=== PATIENT | female | born 1980 | race African-American/Black ===

== ENCOUNTER 2016-03-18 07:40 | Emergency (ER) | payer OTHER ==
[~2016-03-18] VITALS: Ht 154.9 cm; Wt 115.0 kg
[~2016-03-18 07:40] MED LIST: CYCL5TAB PO; IBUP-232 PO
[2016-03-18 07:43] VITALS: BP 147/82; PULSE 71; RESP 15; TEMP 97.6; O2SAT 99
[2016-03-18] MEDS ORDERED: BACT2OIN TOPICAL (08:17)
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
[2016-03-18] MEDS ORDERED: LISI2.5T3 PO (08:30)
[2016-03-18] MEDS ORDERED: CLON0.1T PO (08:30)
[2016-03-18] MEDS ORDERED: LISI-519 PO (08:31)
== END 2016-03-18 08:50 | disposition home or self-care (01) ==
LOC: NEPB 07:40
DX: R23.4 Changes in skin texture (principal); N64.59 Other signs and symptoms in breast; I10 Essential (primary) hypertension; E78.00 Pure hypercholesterolemia, unspecified; F17.210 Nicotine dependence, cigarettes, uncomplicated
CPT/HCPCS: 99283

== ENCOUNTER 2016-08-01 22:06 | Emergency (ER) | payer OTHER ==
[~2016-08-01] VITALS: Ht 170.2 cm; Wt 105.0 kg
[~2016-08-01 22:06] MED LIST changes: +BACT2OIN TOPICAL; +CLON0.1T PO; -CYCL5TAB PO; -IBUP-232 PO; +LISI-519 PO; +LISI2.5T3 PO
[2016-08-01 22:09] VITALS: BP 187/106; PULSE 105; RESP 20; TEMP 98.2; O2SAT 100
[2016-08-02 00:24] VITALS: O2SAT 100
[2016-08-02 00:34] LABS: AUTOMATED NEUTROPHIL # 4.2 TH/MM3 (1.8-7.7); BASOPHIL % 0.6 % (0.0-2.0); EOSINOPHIL # 0.2 TH/MM3 (0-0.4); EOSINOPHIL % 2.1 % (0.0-4.0); HEMO FLAGS DIFF FINAL; LYMPH % 41.2 % (9.0-44.0); LYMPHOCYTE # 3.5 TH/MM3 (1.0-4.8); MEAN CELL VOLUME 83.9 FL (80.0-100.0); MEAN CORPUSCULAR HEMOGLOBIN 26.6 PG (27.0-34.0); MEAN CORPUSCULAR HGB CONC 31.7 % (32.0-36.0); NEUT % 49.1 % (16.0-70.0); PLATELET COUNT 372 TH/MM3 (150-450); RED BLOOD COUNT 5.37 MIL/MM3 (4.00-5.30); RED CELL DISTRIBUTION WIDTH 14.2 % (11.6-17.2); WHITE BLOOD COUNT 8.6 TH/MM3 (4.0-11.0)
--- NOTE | 2016-08-02 00:58 | PD ---
HPI Chief Complaint: Hypertension Time Seen by Provider: 23:46 Travel History International Travel<30 days: No Contact w/Intl Traveler<30days: No Traveled to known affect area: No History of Present Illness HPI The patient is a 36 year old female who presents to the [facility] emergency department with a history of running out of her blood pressure medication 3 days ago. She was on Clonidine and lisinopril. The night she ran out of her blood pressure medication, she began to have nausea and vomiting. She is having nausea and vomiting 6 times per day. She has had diarrhea 3 x per day. She denies having any blood in her stool or black or tarry stools. She denies having any mucus in her stool. She denies having any known sick contacts, recent antibiotic use, foreign travel, or unusual food intake. She reports that she ran out of her blood pressure medication as she lost her insurance briefly and no longer had a primary care physician. The patient reports that she has pain around her umbilical hernia site. She reports that she believes this is related to recurrent vomiting. The patient denies any known recent fevers, cough, congestion, neck pain, chest pain, shortness of breath, urinary symptoms, or neurologic symptoms. FOR[facility]LY [facility] Past Medical History Narrative Medical The patient's past medical history is significant for umbilical hernia for 2 years, hypertension, high cholesterol, depression, brain bleed in childhood, seizures. Blood Disorders: No Anxiety: No Depression: Yes Heart Rhythm Problems: No Cancer: No Cardiac Catheterization: No Cardiovascular Problems: Yes (HTN) High Cholesterol: Yes Chest Pain: No Congestive Heart Failure: No Diabetes: No Diminished Hearing: No Endocrine: No Genitourinary: Yes (hernia repair) Headaches: Yes Heparin Induced Thrombocytopen: No Hypertension: Yes Immune Disorder: No Implanted Vascular Access Dvce: No Musculoskeletal: No Neurologic: Yes (seizures) Psychiatric: Yes Reproductive: No Respiratory: No Immunizations Current: No Seizures: Yes ( A CHILD) ?: Not LMP: 07/23/16 : 4 Para: 3 Miscarriage: 1 : 1 Ectopic : Yes Ovarian Cysts: Yes Tubal Ligation: Yes (UNILATERAL) Past Surgical History Narrative Surgical Patient's past surgical history is significant for hernia repair, c-sections x3 , tubal removal, btl. Abdominal Surgery: Yes (Hernia 2011) AICD: No Body Medical Devices: BLOOD CLOT RIGHT SIDE OF HEAD FIVE YEARS AGO-no sx for this Section: Yes (X3) Coronary Artery Bypass Graft: No Genitourinary Surgery: No Gynecologic Surgery: Yes (TUBAL LIGATION, X 4) Other Surgery: Yes Family History Family Myocardial Infarction: Yes (grandmother ) Social History Alcohol Use: No Tobacco Use: Yes (1/2 PPD) Substance Use: Yes (MARIJUANA OCCASIONAL) Allergies-Medications (Allergen,Severity, Reaction): Coded Allergies: Darvocet-N 100 (Verified Adverse Reaction, Mild, itch, 08/01/16) Lortab (Verified Adverse Reaction, Unknown, ITCHY, 08/01/16) Morphine (Verified Adverse Reaction, Unknown, ITCHING, 08/01/16) Tylenol #3 (Verified Adverse Reaction, Unknown, ITCHING, 08/01/16) Reported Meds & Prescriptions Reported Meds & Active Scripts Active Zofran Odt (Ondansetron Odt) 4 Mg Tab 4 Mg SL Q6HR PRN Clonidine (Clonidine HCl) 0.2 Mg Tab 0.2 Mg PO BID Lisinopril 5 Mg Tab 5 Mg PO DAILY Reported Clonidine (Clonidine HCl) 0.1 Mg Tab 0.2 PO DAILY Lisinopril 2.5 Mg Tab Unknown Dose PO DAILY Review of Systems Except as stated in HPI: all other systems reviewed are Neg General / Constitutional: No: Fever Eyes: No: Visual changes HENT: Positive: Headaches, No: Neck Stiffness, Neck Pain Cardiovascular: No: Chest Pain or Discomfort Respiratory: No: Shortness of Breath Gastrointestinal: Positive: Nausea, Vomiting, Diarrhea, Abdominal Pain, Changes in Bowel Habits, Indigestion, No: Hematemesis, Hematochezia, Constipation, Loss of Appetite Genitourinary: No: Dysuria Musculoskeletal: No: Pain Skin: No Rash Neurologic: Positive: Headache, No: Weakness, Focal Abnormalities, Change in Mentation, Slurred Speech, Sensory Disturbance Psychiatric: No: Depression Endocrine: No: Polydipsia Hematologic/Lymphatic: No: Easy Bruising Physical Exam Narrative General: The patient is a well-developed well-nourished female in no acute distress. Head and Neck exam: Head is normocephalic atraumatic. Eyes: EOMI, pupils are equal round and reactive to light. Nose: Midline septum with pink mucous membranes Mouth: Dentition unremarkable. Moist mucus membranes. Posterior oropharynx is not erythematous. No tonsillar hypertrophy. Uvula midline. Airway patent. Neck: No palpable lymphadenopathy. No nuchal rigidity. No thyromegaly. Cardiovascular: Regular rate and rhythm without murmurs, gallops, or rubs. Lungs: Clear to auscultation bilaterally. No wheezes, rhonchi, or rales. Abdomen: Soft, with tenderness on palpation in the midepigastric area, and periumbilical area without any palpable hernia. No other tenderness on palpation of the other quadrants of the abdomen. No guarding, rebound, or rigidity. Negative [place] sign. No tenderness on palpation of McBurney's point. Normal bowel sounds are audible. Extremities: No clubbing, cyanosis, or edema. 2+ pulses in all 4 extremities. No calf tenderness on palpation. Back: No costovertebral angle tenderness to palpation. Neurologic Exam: Cranial nerves 2-12 were intact on exam. Strength is 5/5 in all 4 extremities. No sensory deficits noted. Skin Exam: No rash noted. Intact skin that is warm and dry. Data Data Last Documented VS Vital Signs Date Time Temp Pulse Resp B/P Pulse Ox O2 Delivery O2 Flow Rate FiO2 08/02/16 00:24 100 Room Air 08/01/16 22:09 98.2 105 20 187/106 Orders Electrocardiogram (08/02/16 00:11) Complete Blood Count With Diff (08/02/16 00:11) Comprehensive Metabolic Panel (08/02/16 00:11) Creatine Kinase (Cpk) (08/02/16 00:11) Ckmb (Isoenzyme) Profile (08/02/16 00:11) Troponin I (08/02/16 00:11) Prothrombin Time / Inr (Pt) (08/02/16 00:11) Act Partial Throm Time (Ptt) (08/02/16 00:11) Lipase (08/02/16:11) Chest, Single Ap (08/02/16 00:11) Ct Brain W/O Iv Contrast(Rout) (08/02/16 00:11) Iv Access Insert/Monitor (08/02/16 00:11) Ecg Monitoring (08/02/16 00:11) Oximetry (08/02/16 00:11) Ed Urine Pregnancytest Poc (08/02/16 00:11) Sodium Chlor 0.9% 1000 Ml Inj (Ns 1000 M (08/02/16 01:00) Ondansetron Inj (Zofran Inj) (08/02/16 01:00) Clonidine (Catapres) (08/02/16 01:00) Ct Abd/Pel W Iv Contrast(Rout) (08/02/16 01:01) CKMB (08/02/16 00:15) CKMB% (08/02/16 00:15) Iohexol 350 Inj (Omnipaque 350 Inj) (08/02/16 02:12) Labs Laboratory Tests Test 08/02/16 00:15 White Blood Count 8.6 TH/MM3 Red Blood Count 5.37 MIL/MM3 Hemoglobin 14.3 GM/DL Hematocrit 45.0 % Mean Corpuscular Volume 83.9 FL Mean Corpuscular Hemoglobin 26.6 PG Mean Corpuscular Hemoglobin 31.7 % Concent Red Cell Distribution Width 14.2 % Platelet Count 372 TH/MM3 Mean Platelet Volume 8.9 FL Neutrophils (%) (Auto) 49.1 % Lymphocytes (%) (Auto) 41.2 % Monocytes (%) (Auto) 7.0 % Eosinophils (%) (Auto) 2.1 % Basophils (%) (Auto) 0.6 % Neutrophils # (Auto) 4.2 TH/MM3 Lymphocytes # (Auto) 3.5 TH/MM3 Monocytes # (Auto) 0.6 TH/MM3 Eosinophils # (Auto) 0.2 TH/MM3 Basophils # (Auto) 0.0 TH/MM3 CBC Comment DIFF FINAL Differential Comment Prothrombin Time 11.0 SEC Prothromb Time International 1.0 RATIO Ratio Activated Partial 25.0 SEC Thromboplast Time Sodium Level 141 MEQ/L Potassium Level 3.8 MEQ/L Chloride Level 104 MEQ/L Carbon Dioxide Level 27.6 MEQ/L Anion Gap 9 MEQ/L Blood Urea Nitrogen 8 MG/DL Creatinine 0.78 MG/DL Estimat Glomerular Filtration 102 ML/MIN Rate Random Glucose 81 MG/DL Calcium Level 9.4 MG/DL Total Bilirubin 0.4 MG/DL Aspartate Amino Transf 139 U/L (AST/SGOT) Alanine Aminotransferase 120 U/L (ALT/SGPT) Alkaline Phosphatase 96 U/L Total Creatine Kinase 210 U/L Creatine Kinase MB 0.6 NG/ML Creatine Kinase MB % 0.3 % Troponin I LESS THAN 0.02 NG/ML Total Protein 9.5 GM/DL Albumin 4.3 GM/DL Lipase 173 U/L MDM Medical Decision Making Medical Screen Exam Complete: Yes Emergency Medical Condition: Yes Medical Record Reviewed: Yes Interpretation(s) Last Impressions Abdomen/Pelvis CT 08/02/16100 Signed Impressions: Service Date/Time: Tuesday, August 02, 2016 02:08 - CONCLUSION: No appreciable change since 10/2015. Ron Gallagher MD Head CT 08/02/1610 Signed Impressions: Service Date/Time: Tuesday, August 02, 2016 02:06 - CONCLUSION: Unremarkable study except for mild mucoperiosteal thickening of maxillary sinuses. Ron Gallagher MD Chest X-Ray 08/02/1610 Signed Impressions: Service Date/Time: Tuesday, August 02, 2016 01:04 - CONCLUSION: No acute cardiopulmonary disease. Ron Gallagher MD Differential Diagnosis Bowel obstruction, versus pancreatitis, versus gastroenteritis, versus diverticulitis Narrative Course During the course of the patients emergency department visit, the patients history, examination, and differential diagnosis were reviewed with the patient. The patient had IV access obtained and blood work sent for analysis. The patient was placed on a manager cardiac with oximetry and blood pressure monitoring. An EKG was done on arrival. The patient's EKG shows a sinus rhythm with a sinus arrhythmia, heart rate of 74, no acute ST segment elevation or depression, T waves inverted in V1, lead 3, QRS duration is 84 ms, QTc is 437 ms. The patient was initially provided normal saline 1 L IV fluid bolus, Zofran 4 mg IV times one, clonidine 0.2 mg by mouth 1. The patients laboratory studies were reviewed and remarkable for a white count of 8.6, hemoglobin 14.3, platelets 372 with a normal differential. CMP is remarkable for an AST 139, ALT 120, CPK 210, MB percent 0.3, troponin I less than 0.02, lipase 173, PT PTT within normal limits. From reviewing the patient' s electronic medical record, the patient has a history of elevated liver enzymes in the past and is similar pattern, most recently in May 2015. Patient's CT scan of the abdomen and pelvis show fatty liver infiltration, no other acute abnormality. Radiology studies were reviewed and remarkable for CT scan of the brain that shows mild mucosal thickening of the maxillary sinuses, no other acute intracranial abnormality, chest x-ray is unremarkable. CT scan of the abdomen and pelvis shows no acute abnormality. The patient is encouraged to follow-up with a primary care physician for continued maintenance of her blood pressure. She was started back on her blood pressure medication. The patient was given a prescription for Zofran for nausea. The patient is resting comfortably and feels better, is alert and in no distress. The patients results and examination findings were discussed with the patient. The repeat examination is unremarkable and benign. The history, exam, diagnostic testing, and current condition do not suggest any significant pathology to warrant further testing, continued ED treatment, admission, or surgical evaluation at this point. The vital signs have been stable. The patient does not have uncontrollable pain, intractable vomiting, or other significant symptoms. The patient's condition is stable and appropriate for discharge. The patient will pursue further outpatient evaluation with a primary care physician or other designated or consulting physician as indicated in the discharge instructions. The patient expressed understanding and was agreeable with this plan. Diagnosis Primary Impression: Abdominal pain Qualified Code: R10.13 - Epigastric pain Additional Impressions: Hypertension Qualified Code: I10 - Essential hypertension Noncompliance with medications Referrals: Primary Care Physician 2 days Patient Instructions: Abdominal Pain (ED), Chronic Hypertension (ED), General Instructions Med/Other Pt SpecificInfo: Prescription(s) given Scripts Ondansetron Odt (Zofran Odt)4 Mg Tab4 Mg SL Q6HR PRN (Nausea/Vomiting) #7 TAB Ref 0 Prov:Niya Velazquez MD 08/02/16 Clonidine 0.2 Mg Tab0.2 Mg PO BID #30 TAB Ref 0 Prov:Niya Velazquez MD 08/02/16 Lisinopril 5 Mg Tab5 Mg PO DAILY #30 TAB Ref 0 Prov:Niya Velazquez MD 08/02/16 Disposition: 01 DISCHARGE HOME Condition: Stable Niya Velazquez MD Aug 02, 2016 00:58
[2016-08-02] MEDS ORDERED: ONDANSETRON HCL 4 MG/2 ML VIAL IV ONE (01:00)
[2016-08-02] MEDS ORDERED: SODIUM CHLOR 0.9% 1000 ML INJ 1,000 ML IV ONE (01:00)
[2016-08-02] MEDS ORDERED: cloNIDine HCL 0.2 MG TAB PO ONE (01:00)
[2016-08-02 01:14] LABS: ALT (GPT) 120 U/L (10-53); ANION GAP 9 MEQ/L (5-15); AST (GOT) 139 U/L (15-37); BICARBONATE 27.6 MEQ/L (21.0-32.0); BLOOD UREA NITROGEN 8 MG/DL (7-18); CHLORIDE 104 MEQ/L (98-107); GLOMERULAR FILTRATION RATE 102 ML/MIN (>89); POTASSIUM 3.8 MEQ/L (3.5-5.1); SODIUM (NA) 141 MEQ/L (136-145)
[2016-08-02 01:17] LABS: ALKALINE PHOSPHATASE 96 U/L (45-117); CREATINE KINASE 210 U/L (26-192); TOTAL BILIRUBIN ADULT 0.4 MG/DL (0.2-1.0)
--- NOTE | 2016-08-02 01:17 | RADRPT ---
EXAM DATE/TIME: 08/02/2016 01:04 [facility] COMPARISON: CHEST SINGLE AP, March 28, 2015, 4:33. INDICATIONS : Abdominal pain, possible inguinal hernia. MEDICAL HISTORY : Hernia SURGICAL HISTORY : Hernia repair ENCOUNTER: Initial ACUITY: 1 day PAIN SCORE: 10/10 LOCATION: Bilateral lower quadrant Abdomen FINDINGS: The lungs are clear without infiltrate, nodule, or mass. There is no appreciable pleural effusion fo r technique. Heart and mediastinum are unremarkable. CONCLUSION: No acute cardiopulmonary disease. Ron Gallagher MD on August 02, 2016 at 1:15 Board Certified Radiologist. This report was verified electronically.
[2016-08-02 01:29] LABS: CKMB 0.6 NG/ML (0.5-3.6)
[2016-08-02] MEDS ORDERED: IOHEXOL 350 MG/ML 10 ML VIAL (for RAD DIAG) IV ONE (02:12)
--- NOTE | 2016-08-02 02:21 | RADRPT ---
EXAM DATE/TIME: 08/02/2016 02:06 [facility] COMPARISON: CT BRAIN W/O CONTRAST, January 10, 2016, 8:14. INDICATIONS : Cephalgia. RADIATION DOSE: 56.77 CTDIvol (mGy) MEDICAL HISTORY : Hypertension. SURGICAL HISTORY : Tubal ligation. section.Hernia repair. ENCOUNTER: Initial ACUITY: 1 day PAIN SCALE: 6/10 LOCATION: cranial TECHNIQUE: Multiple contiguous axial images were obtained of the head. Using automated exposure control and adj ustment of the mA and/or kV according to patient size, radiation dose was kept as low as reasonably a chievable to obtain optimal diagnostic quality images. FINDINGS: There is no evidence for intracranial hemorrhage, mass effect, mass lesions, edema, or extra-axial fl uid collections. The visualized bony structures appear intact. The ventricles are normal size for t he patient's age. There are no signs of acute infarction for technique. There is mild mucoperiosteal thickening within bilateral maxillary sinuses. CONCLUSION: Unremarkable study except for mild mucoperiosteal thickening of maxillary sinuse s. K. Gavin Gallagher MD on August 02, 2016 at 2:18 Board Certified Radiologist. This report was verified electronically.
--- NOTE | 2016-08-02 02:24 | RADRPT ---
EXAM DATE/TIME: 08/02/2016 02:08 [facility] COMPARISON: CT ABDOMEN & PELVIS W CONTRAST, November 03, 2015, 9:28. INDICATIONS : Abdominal pain with nausea and vomiting. IV CONTRAST: 98 cc Omnipaque 350 (iohexol) IV ORAL CONTRAST: No oral contrast ingested. RADIATION DOSE: 31.35 CTDIvol (mGy) MEDICAL HISTORY : Hypertension. SURGICAL HISTORY : section. Tubal ligation.Hernia repair. ENCOUNTER: Initial ACUITY: 1 day PAIN SCALE: 6/10 LOCATION: Abdomen TECHNIQUE: Volumetric scanning of the abdomen and pelvis was performed. Using automated exposure control and ad justment of the mA and/or kV according to patient size, radiation dose was kept as low as reasonably achievable to obtain optimal diagnostic quality images. FINDINGS: CT Abdomen: The spleen, pancreas, kidneys, adrenals are unremarkable. There is no evidence for any ap preciable pathological adenopathy, free fluid, or bowel obstruction. There is fat herniation underne ath the umbilicus with slight inflammatory changes in the site not changed. There is no bowel herniat ion. The liver is fatty without focal lesions or technique. CT pelvis: There is no evidence for mass, abscess formation, or any significant adenopathy within the pelvis. CONCLUSION: No appreciable change since 10/2015. Ron Gallagher MD on August 02, 2016 at 2:20 Board Certified Radiologist. This report was verified electronically.
[2016-08-02] MEDS ORDERED: CLON0.2T PO (02:54)
[2016-08-02] MEDS ORDERED: ZOFR4TAB3 SL (02:54)
[2016-08-02] MEDS ORDERED: LISI-519 PO (02:54)
--- NOTE | 2016-08-02 11:51 | EKG ---
Date Performed: 08/02/2016 Time Performed: 00:21:50 PTAGE: 36 years EKG: Sinus rhythm WITH SINUS ARRHYTHMIA Since previous tracing, no significant change noted NORMAL ECG PREVIOUS TRACING : 01/10/2016 06.33 DOCTOR: Jose Velazquez Interpretating Date/Time 08/02/2016 11:50:42
== END 2016-08-02 03:12 | disposition home or self-care (01) ==
LOC: NEPE 22:06
DX: R10.13 Epigastric pain (principal); I10 Essential (primary) hypertension; Z91.14 Patient's other noncompliance with medication regimen; E78.00 Pure hypercholesterolemia, unspecified; F17.200 Nicotine dependence, unspecified, uncomplicated; F12.90 Cannabis use, unspecified, uncomplicated
CPT/HCPCS: 70450; 71010; 74177; 80053; 82550; 82552; 83690; 84484; 84703; 85025; 85610; 85730; 93005; 96361; 96374; 99285; J2405; J7030; Q9967

== ENCOUNTER 2017-01-26 00:10 | Emergency (ER) | payer OTHER ==
[~2017-01-26] VITALS: Ht 154.9 cm; Wt 132.0 kg
[~2017-01-26 00:10] MED LIST changes: -BACT2OIN TOPICAL; +CLON0.2T PO; +ZOFR4TAB3 SL
[2017-01-26 00:13] VITALS: BP 130/96; PULSE 119; RESP 20; TEMP 97.7; O2SAT 100
--- NOTE | 2017-01-26 00:53 | PD ---
HPI Chief Complaint: Fall Time Seen by Provider: 00:52 Travel History International Travel<30 days: No Contact w/Intl Traveler<30days: No Traveled to known affect area: No History of Present Illness HPI The patient is a 36 year old female who presents to the [facility] emergency department with a history of slipping in the shower 2 days ago when she became lightheaded. She landed on her right side in the shower. She was cleaning her home earlier today and the pain got worse. The pain is in her tailbone and goes up to the base of her neck and into her head. It hurts worse with touching it. She denies hitting her head or losing consciousness. She denies having any numbness or tingling to her extremities. She denies having any weakness of her extremities. She has been able to ambulate over the last 2 days. She denies using any ice on the areas. She reports taking Ibuprofen and Tylenol for the pain. On review of systems, the patient denies having any known recent fevers, cough or congestion, chest pain, shortness of breath, abdominal pain, vomiting, diarrhea, urinary symptoms, or other neurologic symptoms. LMP: It ended today. Her cycle has been heavier than usual and lasted 5 days. PFS Past Medical History Narrative Medical The patient's past medical history is significant for hypertension, obesity, seizure disorder, high cholesterol, childhood TBI. Blood Disorders: No Anxiety: No Depression: Yes Heart Rhythm Problems: No Cancer: No Cardiac Catheterization: No Cardiovascular Problems: Yes (HTN) High Cholesterol: Yes Chest Pain: No Congestive Heart Failure: No Diabetes: No Diminished Hearing: No Endocrine: No Genitourinary: Yes (hernia repair) Headaches: Yes Heparin Induced Thrombocytopen: No Hypertension: Yes Immune Disorder: No Implanted Vascular Access Dvce: No Musculoskeletal: No Neurologic: Yes (seizures) Psychiatric: Yes Reproductive: No Respiratory: No Immunizations Current: No Seizures: Yes ( A CHILD) Tetanus Vaccination: > 5 Years Influenza Vaccination: No ?: Not : 4 Para: 3 Miscarriage: 1 : 1 Ectopic : Yes Ovarian Cysts: Yes Tubal Ligation: Yes (UNILATERAL) Past Surgical History Narrative Surgical The patient's past surgical history is significant for ectopic resection, hernia repair, 3 c-sections. Abdominal Surgery: Yes (Hernia 2011) AICD: No Body Medical Devices: BLOOD CLOT RIGHT SIDE OF HEAD FIVE YEARS AGO-no sx for this Section: Yes (X3) Coronary Artery Bypass Graft: No Genitourinary Surgery: No Gynecologic Surgery: Yes (TUBAL LIGATION, X 4) Other Surgery: Yes Family History Family Myocardial Infarction: Yes (grandmother ) Social History Alcohol Use: Yes (occasionally) Tobacco Use: Yes (1/2 PPD) Substance Use: Yes (MARIJUANA OCCASIONAL) Allergies-Medications (Allergen,Severity, Reaction): Coded Allergies: propoxyphene (Unverified Adverse Reaction, Mild, itch, 01/26/17) acetaminophen (Unverified Adverse Reaction, Unknown, ITCHING, 01/26/17) codeine (Unverified Adverse Reaction, Unknown, ITCHING, 01/26/17) hydrocodone (Unverified Adverse Reaction, Unknown, ITCHY, 01/26/17) morphine (Unverified Adverse Reaction, Unknown, ITCHING, 01/26/17) Reported Meds & Prescriptions Reported Meds & Active Scripts Active Lisinopril 5 Mg Tab 5 Mg PO DAILY Skelaxin (Metaxalone) 800 Mg Tablet 1 Tab PO Q8HR PRN EC-Naprosyn (Naproxen) 500 Mg Tabdr 500 Mg PO BID PRN Reported Phenergan (Promethazine HCl) 25 Mg Tablet 25 Mg PO ONCE Gabapentin 300 Mg Cap 300 Mg PO BID Clonidine (Clonidine HCl) 0.2 Mg Tab 0.2 Mg PO TID Review of Systems Except as stated in HPI: all other systems reviewed are Neg General / Constitutional: No: Fever Eyes: No: Visual changes HENT: Positive: Headaches, Lightheadedness, Neck Pain Cardiovascular: No: Chest Pain or Discomfort Respiratory: No: Shortness of Breath Gastrointestinal: No: Abdominal Pain Genitourinary: No: Dysuria Musculoskeletal: Positive: Myalgias, Arthralgias, No: Pain Skin: No Rash Neurologic: No: Weakness, Focal Abnormalities, Change in Mentation, Slurred Speech, Sensory Disturbance Psychiatric: No: Depression Endocrine: No: Polydipsia Hematologic/Lymphatic: No: Easy Bruising Physical Exam Narrative General: The patient is a well-developed well-nourished female in no acute distress. Head and Neck exam: Head is normocephalic atraumatic. Eyes: EOMI, pupils are equal round and reactive to light. Nose: Midline septum with pink mucous membranes Mouth: Dentition unremarkable. Moist mucus membranes. Posterior oropharynx is not erythematous. No tonsillar hypertrophy. Uvula midline. Airway patent. Neck: No palpable lymphadenopathy. No nuchal rigidity. No thyromegaly. The patient has paraspinal muscle tenderness on palpation bilaterally along the cervical paraspinal musculature. The patient has tenderness on palpation at the base of the head near the occiput. There is no step-off or crepitus. No erythema or ecchymosis. Cardiovascular: Sinus tachycardia in the low 100s without murmurs, gallops, or rubs. No pulse deficit to the extremities on simultaneous auscultation and palpation of her radial artery. Lungs: Clear to auscultation bilaterally. No wheezes, rhonchi, or rales. Abdomen: Soft, without tenderness to palpation in all 4 quadrants of the abdomen. No guarding, rebound, or rigidity. Normal bowel sounds are audible. No tenderness on palpation of McBurney's point. Extremities: No clubbing, cyanosis, or edema. 2+ pulses in all 4 extremities. No extremity pain or deformity. She has full range of motion. Back: No spinous process tenderness to palpation. No step-off or crepitus. No erythema or ecchymosis. The patient reports having diffuse paraspinal muscle tenderness on palpation over the thoracic and lumbar paraspinal musculature bilaterally. The patient reports having bilateral CVA tenderness. Neurologic Exam: Grossly nonfocal. Skin Exam: No rash noted. Intact skin that is warm and dry. No bruising is noted. Data Data Last Documented VS Vital Signs Date Time Temp Pulse Resp B/P (MAP) Pulse Ox O2 Delivery O2 Flow Rate FiO2 01/26/17 03:41 01/26/17 00:13 97.7 119 20 100 Room Air Orders Orders Electrocardiogram (01/26/17:19) Complete Blood Count With Diff (01/26/17:) Comprehensive Metabolic Panel (01/26/17:19) Creatine Kinase (Cpk) (01/26/17:19) Ckmb (Isoenzyme) Profile (01/26/17:) Troponin I (01/26/17:) B-Type Natriuretic Peptide (01/26/17:19) Prothrombin Time / Inr (Pt) (01/26/17:19) Act Partial Throm Time (Ptt) (01/26/17:19) Urinalysis - C+S If Indicated (01/26/17:19) Magnesium (Mg) (01/26/17:19) Thyroid Stimulating Hormone (01/26/17:19) Chest, Single Ap (01/26/17:19) Ct Brain W/O Iv Contrast(Rout) (01/26/17:19) Pelvis, Ap Only (Routine) (01/26/17:19) Spine, Thoracic-Ap/Lat/Sw(3vw) (01/26/17:19) Spine, Lumbar - Ltd (Ap & Lat) (01/26/17:19) Iv Access Insert/Monitor (01/26/17:19) Ecg Monitoring (01/26/17:19) Oximetry (01/26/17:19) Ed Urine Pregnancytest Poc (01/26/17:19) Ct Cerv Spine W/O Contrast (01/26/17 ) Orthostatic Vital Signs (01/26/17 01:44) Sodium Chlor 0.9% 1000 Ml Inj (Ns 1000 M (01/26/17 01:45) Tramadol-Acetamin 37.5-325 Mg (Ultracet (01/26/17 03:00) Ondansetron Inj (Zofran Inj) (01/26/17 03:15) CKMB (01/26/17 02:25) CKMB% (01/26/17 02:25) Ed Discharge Order (01/26/17 03:54) Labs Laboratory Tests Test 01/26/17 01:40 01/26/17 02:25 White Blood Count 9.9 TH/MM3 Red Blood Count 4.92 MIL/MM3 Hemoglobin 13.8 GM/DL Hematocrit 42.1 % Mean Corpuscular Volume 85.6 FL Mean Corpuscular Hemoglobin 27.9 PG Mean Corpuscular Hemoglobin Concent 32.7 % Red Cell Distribution Width 13.1 % Platelet Count 373 TH/MM3 Mean Platelet Volume 8.8 FL Neutrophils (%) (Auto) 69.4 % Lymphocytes (%) (Auto) 23.7 % Monocytes (%) (Auto) 5.3 % Eosinophils (%) (Auto) 1.2 % Basophils (%) (Auto) 0.4 % Neutrophils # (Auto) 6.9 TH/MM3 Lymphocytes # (Auto) 2.4 TH/MM3 Monocytes # (Auto) 0.5 TH/MM3 Eosinophils # (Auto) 0.1 TH/MM3 Basophils # (Auto) 0.0 TH/MM3 CBC Comment DIFF FINAL Differential Comment Prothrombin Time 10.8 SEC Prothromb Time International Ratio 1.1 RATIO Activated Partial Thromboplast Time 24.4 SEC B-Type Natriuretic Peptide 2 PG/ML Blood Urea Nitrogen 8 MG/DL Creatinine 0.89 MG/DL Random Glucose 105 MG/DL Total Protein 9.0 GM/DL Albumin 3.9 GM/DL Calcium Level 9.2 MG/DL Magnesium Level 1.9 MG/DL Alkaline Phosphatase 106 U/L Aspartate Amino Transf (AST/SGOT) 106 U/L Alanine Aminotransferase (ALT/SGPT) 88 U/L Total Bilirubin 0.6 MG/DL Sodium Level 139 MEQ/L Potassium Level 4.2 MEQ/L Chloride Level 105 MEQ/L Carbon Dioxide Level 25.5 MEQ/L Anion Gap 9 MEQ/L Estimat Glomerular Filtration Rate 88 ML/MIN Total Creatine Kinase 180 U/L Creatine Kinase MB 0.5 NG/ML Troponin I LESS THAN 0.02 NG/ML Thyroid Stimulating Hormone 3rd Gen 0.870 uIU/ML MDM Medical Decision Making Medical Screen Exam Complete: Yes Emergency Medical Condition: Yes Medical Record Reviewed: Yes Interpretation(s) Vital Signs Date Time Temp Pulse Resp B/P (MAP) Pulse Ox O2 Delivery O2 Flow Rate FiO2 01/26/17 00:34 (107) 01/26/17 00:13 97.7 119 20 130/96 (107) 100 Room Air Differential Diagnosis Symptomatic anemia, versus orthostasis, versus dehydration, versus intracranial trauma, versus cervical spine injury, versus other spinal injury Narrative Course During the course of the patients emergency department visit, the patients history, examination, and differential diagnosis were reviewed with the patient. The patient was placed on a electronic device monitor with oximetry and frequent blood pressure monitoring. The patient had IV access obtained and blood work sent for analysis. An ECG done on arrival shows a sinus tachycardia rate of 100 , no acute ST segment elevation or depression, QRS duration is 82 ms, QTC 415 ms. The patient was initially provided normal saline IV fluids. The patient was given tramadol for pain. The patients laboratory studies were reviewed and remarkable for a CBC that is within normal limits, BNP is 2, CMP is unremarkable. Radiology studies were reviewed and remarkable for a chest x-ray that shows no acute cardiopulmonary disease. Pelvis x-ray shows no acute cardiopulmonary disease, T-spine x-ray shows mild invagination of the superior endplate of T8 vertebral body which appears chronic, mild scoliosis. Lumbar spine x-ray shows no acute abnormality. The patient will be discharged home with a prescription for an anti- inflammatory pain medication and a muscle relaxer. The patient also requests a refill of her blood pressure medication. The patient was given a refill of lisinopril. The patient is resting comfortably and feels better, is alert and in no distress. The patients results and examination findings were discussed with the patient. The repeat examination is unremarkable and benign. The history, exam, diagnostic testing, and current condition do not suggest any significant pathology to warrant further testing, continued ED treatment, admission, or surgical evaluation at this point. The vital signs have been stable. The patient does not have uncontrollable pain, intractable vomiting, or other significant symptoms. The patient's condition is stable and appropriate for discharge. The patient will pursue further outpatient evaluation with a primary care physician or other designated or consulting physician as indicated in the discharge instructions. The patient expressed understanding and was agreeable with this plan. Diagnosis Primary Impression: Fall Qualified Codes: W19.XXXA - Unspecified fall, initial encounter Additional Impression: Musculoskeletal strain Referrals: [facility] 3 days Primary Care Physician 3 days Patient Instructions: Back Pain (ED), General Instructions, Muscle Strain (ED) Med/Other Pt SpecificInfo: Prescription(s) given Scripts Lisinopril (Lisinopril) 5 Mg Tab 5 MG PO DAILY for Blood Pressure Management, #30 TAB 0 Refills Prov: Niya Velazquez MD 01/26/17 Metaxalone (Skelaxin) 800 Mg Tablet 1 TAB PO Q8HR Y for SPASM, #12 Prov: Niya Velazquez MD 01/26/[address] (EC-Naprosyn) 500 Mg Tabdr 500 MG PO BID Y for PAIN GREATER THAN 5, #10 TAB 0 Refills Prov: Niya Velazquez MD 01/26/17 Disposition: 01 DISCHARGE HOME Condition: Stable Niya Velazquez MD Jan 26, 2017 00:53
[2017-01-26] MEDS ORDERED: CLON0.2T PO (01:00)
[2017-01-26] MEDS ORDERED: PROM25TA10 PO (01:00)
[2017-01-26] MEDS ORDERED: GABA300C5 PO (01:00)
[2017-01-26] MEDS ORDERED: SODIUM CHLOR 0.9% 1000 ML INJ 1,000 ML IV ONE (01:45)
[2017-01-26 01:52] LABS: AUTOMATED NEUTROPHIL # 6.9 TH/MM3 (1.8-7.7); BASOPHIL % 0.4 % (0.0-2.0); EOSINOPHIL # 0.1 TH/MM3 (0-0.4); EOSINOPHIL % 1.2 % (0.0-4.0); HEMATOCRIT 42.1 % (35.0-46.0); HEMO FLAGS DIFF FINAL; LYMPH % 23.7 % (9.0-44.0); LYMPHOCYTE # 2.4 TH/MM3 (1.0-4.8); MEAN CELL VOLUME 85.6 FL (80.0-100.0); MEAN CORPUSCULAR HEMOGLOBIN 27.9 PG (27.0-34.0); MEAN CORPUSCULAR HGB CONC 32.7 % (32.0-36.0); MONO % 5.3 % (0.0-8.0); NEUT % 69.4 % (16.0-70.0); PLATELET COUNT 373 TH/MM3 (150-450); RED BLOOD COUNT 4.92 MIL/MM3 (4.00-5.30); RED CELL DISTRIBUTION WIDTH 13.1 % (11.6-17.2); WHITE BLOOD COUNT 9.9 TH/MM3 (4.0-11.0)
[2017-01-26 02:05] LABS: APTT (PATIENT) 24.4 SEC (24.3-30.1); INTERNATIONAL NORMALIZED RATIO 1.1 RATIO; PROTHROMBIN TIME - PATIENT 10.8 SEC (9.8-11.6)
--- NOTE | 2017-01-26 02:18 | RADRPT ---
EXAM DATE/TIME: 01/26/2017 01:55 [facility] COMPARISON: No previous studies available for comparison. INDICATIONS : Tailbone pain post fall. MEDICAL HISTORY : Hypertension. SURGICAL HISTORY : section. Tubal ligation. Hernia repair. ENCOUNTER: Initial ACUITY: 2 days PAIN SCORE: 8/10 LOCATION: Bilateral pelvis FINDINGS: A single frontal view of the pelvis demonstrates no evidence of fracture. The bony pelvic ring is in tact. Bony mineralization is normal. The soft tissues are intact. CONCLUSION: Negative trauma study. Bry Sears MD on January 26, 2017 at 2:16 Board Certified Radiologist. This report was verified electronically.
--- NOTE | 2017-01-26 02:18 | RADRPT ---
EXAM DATE/TIME: 01/26/2017 01:58 [facility] COMPARISON: CHEST SINGLE AP, August 02, 2016, 1:04. INDICATIONS : Shortness of breath. MEDICAL HISTORY : Hypertension. SURGICAL HISTORY : section. Tubal ligation. Hernia repair. ENCOUNTER: Initial ACUITY: 2 days PAIN SCORE: 0/10 LOCATION: Bilateral chest FINDINGS: A single view of the chest demonstrates the lungs to be symmetrically aerated without evidence of mas s, infiltrate or effusion. The cardiomediastinal contours are unremarkable. Osseous structures are intact. CONCLUSION: No acute disease. Bry Sears MD on January 26, 2017 at 2:16 Board Certified Radiologist. This report was verified electronically.
--- NOTE | 2017-01-26 02:18 | RADRPT ---
EXAM DATE/TIME: 01/26/2017 01:56 [facility] COMPARISON: SPINE LUMBAR LTD (AP & LAT), January 10, 2016, 5:50. INDICATIONS : Lumbar spine pain post fall. MEDICAL HISTORY : Hypertension. SURGICAL HISTORY : section. Tubal ligation.Hernia repair. ENCOUNTER: Initial ACUITY: 2 days PAIN SCORE: 8/10 LOCATION: Bilateral lumbar spine FINDINGS: Two view examination was performed. There are five non-rib bearing vertebral bodies. The vertebral bodies are in normal alignment without evidence of subluxation or scoliosis. The disc spaces are mario ntained. The pedicles are intact. Bony mineralization is normal. No fracture is identified. CONCLUSION: Negative two-view exam. Bry Sears MD on January 26, 2017 at 2:17 Board Certified Radiologist. This report was verified electronically.
--- NOTE | 2017-01-26 02:20 | RADRPT ---
EXAM DATE/TIME: 01/26/2017 01:57 [facility] COMPARISON: No previous studies available for comparison. INDICATIONS : Thoracic spine pain post fall. MEDICAL HISTORY : Hypertension. SURGICAL HISTORY : section. Tubal ligation.Hernia repair. ENCOUNTER: Initial ACUITY: 2 days PAIN SCORE: 8/10 LOCATION: Bilateral thoracic spine FINDINGS: AP and lateral views of the thoracic spine were obtained and demonstrate a mild scoliosis. There is m ild invagination of the superior endplate of the T8 vertebral body with apparent mild sclerosis. The para vertebral soft tissues are within normal limits. There is minimal degenerative change. CONCLUSION: Mild invagination of the superior endplate of the T8 vertebral body which appears chr onic. Mild scoliosis. Bry Sears MD on January 26, 2017 at 2:17 Board Certified Radiologist. This report was verified electronically.
[2017-01-26] MEDS ORDERED: traMADol/ACETAMINOPHEN 37.5/325 1 TAB PO ONE (03:00)
--- NOTE | 2017-01-26 03:05 | RADRPT ---
EXAM DATE/TIME: 01/26/2017 02:39 [facility] COMPARISON: CT BRAIN W/O CONTRAST, August 02, 2016, 2:06. INDICATIONS : Trauma, fall two days ago. RADIATION DOSE: 34.47 CTDIvol (mGy) MEDICAL HISTORY : Hypertension. SURGICAL HISTORY : Tubal ligation. ENCOUNTER: Initial ACUITY: 2 days PAIN SCALE: 0/10 LOCATION: cranial TECHNIQUE: Multiple contiguous axial images were obtained of the head. Using automated exposure control and adj ustment of the mA and/or kV according to patient size, radiation dose was kept as low as reasonably a chievable to obtain optimal diagnostic quality images. DICOM format image data is available electro nically for review and comparison. FINDINGS: CEREBRUM: The ventricles are normal for age. No evidence of midline shift, mass lesion, hemorrhage or acute in farction. No extra-axial fluid collections are seen. POSTERIOR FOSSA: The cerebellum and brainstem are intact. The 4th ventricle is midline. The cerebellopontine angle i s unremarkable. EXTRACRANIAL: The visualized portion of the orbits is intact. SKULL: The calvaria is intact. No evidence of skull fracture. CONCLUSION: Negative trauma study. Bry Sears MD on January 26, 2017 at 3:03 Board Certified Radiologist. This report was verified electronically.
--- NOTE | 2017-01-26 03:06 | RADRPT ---
EXAM DATE/TIME: 01/26/2017 02:39 [facility] COMPARISON: No previous studies available for comparison. INDICATIONS : Trauma, fall two days ago. RADIATION DOSE: 28.34 CTDIvol (mGy) MEDICAL HISTORY : Hypertension. SURGICAL HISTORY : Tubal ligation. ENCOUNTER: Initial ACUITY: 1 day PAIN SCALE: 0/10 LOCATION: neck TECHNIQUE: Volumetric scanning of the cervical spine was performed. Multiplanar reconstructions in the sagittal, coronal and oblique axial planes were performed. Using automated exposure control and adjustment o f the mA and/or kV according to patient size, radiation dose was kept as low as reasonably achievable to obtain optimal diagnostic quality images. DICOM format image data is available electronically f or review and comparison. FINDINGS: The sagittal reconstructions demonstrate normal alignment and normal prevertebral soft tissues. The d ens is intact and there is a normal atlantoaxial relationship. The axial images demonstrate that the vertebral bodies and posterior elements are intact. The soft ti ssues are within normal limits. There is no evidence of acute fracture or malalignment. CONCLUSION: Negative trauma CT. Bry Sears MD on January 26, 2017 at 3:04 Board Certified Radiologist. This report was verified electronically.
[2017-01-26] MEDS ORDERED: NAPR-810 PO (03:09)
[2017-01-26] MEDS ORDERED: META800 PO (03:09)
[2017-01-26 03:14] LABS: ALKALINE PHOSPHATASE 106 U/L (45-117); ALT (GPT) 88 U/L (10-53); ANION GAP 9 MEQ/L (5-15); AST (GOT) 106 U/L (15-37); BICARBONATE 25.5 MEQ/L (21.0-32.0); BLOOD UREA NITROGEN 8 MG/DL (7-18); CHLORIDE 105 MEQ/L (98-107); CREATINE KINASE 180 U/L (26-192); GLOMERULAR FILTRATION RATE 88 ML/MIN (>89); MAGNESIUM 1.9 MG/DL (1.5-2.5); SODIUM (NA) 139 MEQ/L (136-145); TOTAL BILIRUBIN ADULT 0.6 MG/DL (0.2-1.0)
[2017-01-26 03:15] LABS: POTASSIUM 4.2 MEQ/L (3.5-5.1)
[2017-01-26] MEDS ORDERED: ONDANSETRON HCL 4 MG/2 ML VIAL IV PUSH ONE (03:15)
[2017-01-26 03:27] LABS: CKMB 0.5 NG/ML (0.5-3.6)
[2017-01-26] MEDS ORDERED: LISI-519 PO (03:57)
--- NOTE | 2017-01-26 10:15 | EKG ---
Date Performed: 01/26/2017 Time Performed: 03:09:22 PTAGE: 36 years EKG: SINUS TACHYCARDIA POSSIBLE LEFT ATRIAL ENLARGEMENT ABNORMAL RHYTHM ECG PREVIOUS TRACING : 08/02/2016 00.21 Compared to the previous tracing rate faster DOCTOR: Chin Shahid Interpretating Date/Time 01/26/2017 10:15:09
== END 2017-01-26 04:33 | disposition home or self-care (01) ==
LOC: NEPE 00:10
DX: T14.8XXA Other injury of unspecified body region, initial encounter (principal); M54.2 Cervicalgia; M54.6 Pain in thoracic spine; I10 Essential (primary) hypertension; F17.200 Nicotine dependence, unspecified, uncomplicated; R00.0 Tachycardia, unspecified; R06.02 Shortness of breath; W18.2XXA Fall in (into) shower or empty bathtub, initial encounter; Y93.E1 Activity, personal bathing and showering
CPT/HCPCS: 70450; 71010; 72072; 72100; 72125; 72170; 80053; 82550; 82552; 83735; 83880; 84443; 84484; 84703; 85025; 85610; 85730; 93005; 96374; 99285; J2405; J7030

== ENCOUNTER 2017-03-21 18:06 | Emergency (ER) | payer OTHER ==
[~2017-03-21] VITALS: Ht 154.9 cm; Wt 113.6 kg
[~2017-03-21 18:06] MED LIST changes: -CLON0.1T PO; +GABA300C5 PO; -LISI2.5T3 PO; +META800 PO; +NAPR-810 PO; +PROM25TA10 PO; -ZOFR4TAB3 SL
[2017-03-21 18:10] VITALS: PULSE 60; RESP 24; TEMP 98.3; O2SAT 100
[2017-03-21 19:25] VITALS: BP 123/71; PULSE 66
[2017-03-21] MEDS ORDERED: KETOROLAC TROMETHAMINE 60 MG/2 ML (IM) VIAL IM ONE (19:45)
[2017-03-21] MEDS ORDERED: PENI500T PO (19:51)
[2017-03-21] MEDS ORDERED: MELO15TA20 PO (19:51)
--- NOTE | 2017-03-21 19:52 | PD ---
HPI Chief Complaint: Oral / Dental Pain or Problem Time Seen by Provider: 19:07 Travel History International Travel<30 days: No Contact w/Intl Traveler<30days: No Traveled to known affect area: No History of Present Illness HPI This is a 37-year-old female here with dental pain 2 days. She denies fever or chills. She reports pain is worse with eating, drinking and chewing. Symptom severity is moderate. No alleviating factors. She has not followed up with dentist. PFSH Past Medical History Blood Disorders: No Anxiety: No Depression: Yes Heart Rhythm Problems: No Cancer: No Cardiac Catheterization: No Cardiovascular Problems: Yes (HTN) High Cholesterol: Yes Chest Pain: No Congestive Heart Failure: No Diabetes: No Diminished Hearing: No Endocrine: No Genitourinary: Yes (hernia repair) Headaches: Yes Heparin Induced Thrombocytopen: No Hypertension: Yes Immune Disorder: No Implanted Vascular Access Dvce: No Musculoskeletal: No Neurologic: Yes (seizures) Psychiatric: Yes Reproductive: No Respiratory: No Immunizations Current: No Seizures: Yes ( A CHILD) ?: Not : 4 Para: 3 Miscarriage: 1 : 1 Ectopic : Yes Ovarian Cysts: Yes Tubal Ligation: Yes (UNILATERAL) Past Surgical History Abdominal Surgery: Yes (Hernia 2011) AICD: No Body Medical Devices: BLOOD CLOT RIGHT SIDE OF HEAD FIVE YEARS AGO-no sx for this Section: Yes (X3) Coronary Artery Bypass Graft: No Genitourinary Surgery: No Gynecologic Surgery: Yes (TUBAL LIGATION, X 4) Thoracic Surgery: No Other Surgery: Yes Family History Family Myocardial Infarction: Yes (grandmother ) Social History Alcohol Use: Yes (occasionally) Tobacco Use: Yes (1/2 PPD) Substance Use: Yes (MARIJUANA OCCASIONAL) Allergies-Medications (Allergen,Severity, Reaction): Coded Allergies: propoxyphene (Unverified Adverse Reaction, Mild, itch, 01/26/17) acetaminophen (Unverified Adverse Reaction, Unknown, ITCHING, 01/26/17) codeine (Unverified Adverse Reaction, Unknown, ITCHING, 01/26/17) hydrocodone (Unverified Adverse Reaction, Unknown, ITCHY, 01/26/17) morphine (Unverified Adverse Reaction, Unknown, ITCHING, 01/26/17) Reported Meds & Prescriptions Reported Meds & Active Scripts Active Lisinopril 5 Mg Tab 5 Mg PO DAILY Reported Gabapentin 300 Mg Cap 300 Mg PO BID Clonidine (Clonidine HCl) 0.2 Mg Tab 0.2 Mg PO TID Review of Systems Except as stated in HPI: all other systems reviewed are Neg General / Constitutional: No: Fever Eyes: No: Visual changes HENT: No: Headaches Cardiovascular: No: Chest Pain or Discomfort Respiratory: No: Shortness of Breath Gastrointestinal: No: Abdominal Pain Genitourinary: No: Dysuria Physical Exam Narrative GENERAL: Alert and well-appearing 37-year-old female SKIN: Warm and dry. HEAD: Normocephalic. EYES: No injection or drainage. MOUTH: Multiple dental caries present. reporting pain at the site of a decayed fractured tooth in the left upper premolar area. No obvious abscess. NECK: Supple, trachea midline. CARDIOVASCULAR: Regular rate and rhythm RESPIRATORY: Breath sounds equal bilaterally. No accessory muscle use. Data Data Last Documented VS Vital Signs Date Time Temp Pulse Resp B/P (MAP) Pulse Ox O2 Delivery O2 Flow Rate FiO2 03/21/17 19:25 66 123/71 (88) 03/21/17 18:10 98.3 24 100 Room Air Orders Orders Ketorolac Inj (Toradol Inj) (03/21/17 19:45) MDM Medical Decision Making Medical Screen Exam Complete: Yes Emergency Medical Condition: Yes Differential Diagnosis Dentalgia, dental infection, dental caries Narrative Course 37-year-old female here with dental pain 2 days. She is well-appearing. There is no obvious dental abscess. Patient be treated with Pen-Vee K and meloxicam. Diagnosis Primary Impression: Dental implant pain Qualified Codes: T85.848A - Pain due to other internal prosthetic devices, implants and grafts, initial encounter Referrals: Dentist Additional Instructions: Medications as prescribed. Follow-up with dentist. Scripts Meloxicam (Meloxicam) 15 Mg Tab 15 MG PO DAILY for Arthritis Pain, #30 TAB 0 Refills Prov: Bhakti Watson 03/21/17 Penicillin V Potassium (Penicillin V Potassium) 500 Mg Tab 500 MG PO Q6H for Infection for 7 Days, #28 TAB 0 Refills Prov: Bhakti Watson 03/21/17 Disposition: 01 DISCHARGE HOME Condition: Stable Bhakti Watson Mar 21, 2017 19:52
[2017-03-21] MEDS ORDERED: PENICILLIN V POTASSIUM 500 MG TAB PO ONE (20:00)
[2017-03-21] MEDS ORDERED: AMOXICILLIN (TRIHYDRATE) 500 MG CAP PO ONE (20:00)
== END 2017-03-21 20:21 | disposition home or self-care (01) ==
LOC: NEPK 18:06
DX: M27.69 Other endosseous dental implant failure (principal); I10 Essential (primary) hypertension; E78.00 Pure hypercholesterolemia, unspecified; F32.9 Major depressive disorder, single episode, unspecified; F17.210 Nicotine dependence, cigarettes, uncomplicated; Z88.5 Allergy status to narcotic agent; Z88.8 Allergy status to other drugs, medicaments and biological substances; Z79.899 Other long term (current) drug therapy
CPT/HCPCS: 96372; 99284; J1885

== ENCOUNTER 2017-04-05 07:26 | Emergency (ER) | payer OTHER ==
[~2017-04-05] VITALS: Ht 154.9 cm; Wt 109.0 kg
[~2017-04-05 07:26] MED LIST changes: +MELO15TA20 PO; -META800 PO; -NAPR-810 PO; +PENI500T PO; -PROM25TA10 PO
[2017-04-05 07:28] VITALS: BP 156/113; PULSE 90; RESP 18; TEMP 98.1; O2SAT 100
--- NOTE | 2017-04-05 07:46 | PD ---
HPI Chief Complaint: Back/ Neck Pain or Injury Time Seen by Provider: 07:45 Travel History International Travel<30 days: No Contact w/Intl Traveler<30days: No Traveled to known affect area: No History of Present Illness HPI 37-year-old -[place] female who presents the emergency department status post slipped in the shower yesterday with fall. She now is complaining of bilateral lower back pain. Patient is also concerned about her blood pressure, reportedly out of her clonidine. She currently takes lisinopril 10 mg daily. Patient denies hitting her head or loss of consciousness. She is able to ambulate with difficulty secondary to discomfort. She denies numbness tingling or weakness. She denies urinary symptoms. She has no known drug allergies. PFSH Past Medical History Blood Disorders: No Anxiety: No Depression: Yes Heart Rhythm Problems: No Cancer: No Cardiac Catheterization: No Cardiovascular Problems: Yes (HTN) High Cholesterol: Yes Chest Pain: No Congestive Heart Failure: No Diabetes: No Diminished Hearing: No Endocrine: No Genitourinary: Yes (hernia repair) Headaches: Yes Heparin Induced Thrombocytopen: No Hypertension: Yes Immune Disorder: No Implanted Vascular Access Dvce: No Musculoskeletal: No Neurologic: Yes (seizures) Psychiatric: Yes Reproductive: No Respiratory: No Immunizations Current: No Seizures: Yes ( A CHILD) ?: Not LMP: 03/31/17 : 4 Para: 3 Miscarriage: 1 : 1 Ectopic : Yes Ovarian Cysts: Yes Tubal Ligation: Yes (UNILATERAL) Past Surgical History Abdominal Surgery: Yes (Hernia 2011) AICD: No Body Medical Devices: BLOOD CLOT RIGHT SIDE OF HEAD FIVE YEARS AGO-no sx for this Section: Yes (X3) Coronary Artery Bypass Graft: No Genitourinary Surgery: No Gynecologic Surgery: Yes (TUBAL LIGATION, X 4) Thoracic Surgery: No Other Surgery: Yes Social History Alcohol Use: Yes (occasionally) Tobacco Use: Yes (1/2 PPD) Substance Use: Yes (MARIJUANA OCCASIONAL) Allergies-Medications (Allergen,Severity, Reaction): Coded Allergies: propoxyphene (Unverified Adverse Reaction, Mild, itch, 01/26/17) acetaminophen (Unverified Adverse Reaction, Unknown, ITCHING, 01/26/17) codeine (Unverified Adverse Reaction, Unknown, ITCHING, 01/26/17) hydrocodone (Unverified Adverse Reaction, Unknown, ITCHY, 01/26/17) morphine (Unverified Adverse Reaction, Unknown, ITCHING, 01/26/17) Reported Meds & Prescriptions Reported Meds & Active Scripts Active Gabapentin 300 Mg Cap 300 Mg PO TID Clonidine (Clonidine HCl) 0.1 Mg Tab 0.1 Mg PO TID Flexeril (Cyclobenzaprine HCl) 10 Mg Tab 10 Mg PO TID Meloxicam 15 Mg Tab 15 Mg PO DAILY Penicillin V Potassium 500 Mg Tab 500 Mg PO Q6H 7 Days Lisinopril 5 Mg Tab 5 Mg PO DAILY Reported Gabapentin 300 Mg Cap 300 Mg PO BID Clonidine (Clonidine HCl) 0.2 Mg Tab 0.2 Mg PO TID Review of Systems Except as stated in HPI: all other systems reviewed are Neg General / Constitutional: No: Fever Eyes: No: Visual changes HENT: No: Headaches Cardiovascular: No: Chest Pain or Discomfort Respiratory: No: Shortness of Breath Gastrointestinal: No: Abdominal Pain Genitourinary: No: Dysuria Musculoskeletal: Positive: Myalgias, Limited ROM, Pain Skin: No Rash Neurologic: No: Weakness Psychiatric: No: Depression Endocrine: No: Polydipsia Hematologic/Lymphatic: No: Easy Bruising Physical Exam Narrative GENERAL: Patient appears in mild to moderate distress SKIN: Warm and dry. Normal color. Normal turgor. No signs of trauma HEAD: Atraumatic. Normocephalic. EYES: Pupils equal and round. No scleral icterus. No injection or drainage. ENT: No nasal bleeding or discharge. Mucous membranes pink and moist. Pharynx is clear. Airway is patent. NECK: Trachea midline. No JVD. CARDIOVASCULAR: Regular rate and rhythm. RESPIRATORY: No accessory muscle use. Clear to auscultation. Breath sounds equal bilaterally. GASTROINTESTINAL: Abdomen soft, non-tender, nondistended. Hepatic and splenic margins not palpable. MUSCULOSKELETAL: Extremities without clubbing, cyanosis, or edema. No obvious deformities. Patient has soft tissue tenderness along the lumbar spine bilaterally without straight leg raise pain, or bony tenderness with palpation. NEUROLOGICAL: Awake and alert. No obvious cranial nerve deficits. Motor grossly within normal limits. Five out of 5 muscle strength in the arms and legs. Normal speech. PSYCHIATRIC: Appropriate mood and affect; insight and judgment normal. Data Data Last Documented VS Vital Signs Date Time Temp Pulse Resp B/P (MAP) Pulse Ox O2 Delivery O2 Flow Rate FiO2 04/05/17 07:28 98.1 90 18 156/113 (127) 100 Room Air Orders Orders Orphenadrine Inj (Norflex Inj) (04/05/17 08:15) Clonidine (Catapres) (04/05/17 08:15) MDM Medical Decision Making Medical Screen Exam Complete: Yes Emergency Medical Condition: Yes Differential Diagnosis Slip and fall. Lumbar sprain. Hypertension. Need for meds. Narrative Course Patient was given Norflex 60 mg IM. Patient given clonidine 0.1 mg p.o. now. Radiographic imaging is not felt warranted based on my history and physical per Patient will be continued on Flexeril 10 mg up to 3 times daily #15. Patient given a refill of her clonidine 0.1 mg twice daily. Patient is increased on her gabapentin to 300 mg 3 times daily. Patient to continue her meloxicam 15 mg daily per Recommend follow-up with [facility] regarding her blood pressure issues. Patient can return to the emergency department with any worsening symptoms per Diagnosis Primary Impression: Fall (on) (from) other stairs and steps, initial encounter Additional Impressions: Hypertension Qualified Codes: I10 - Essential (primary) hypertension Acute lumbar myofascial strain Qualified Codes: S39.012A - Strain of muscle, fascia and tendon of lower back , initial encounter Referrals: [facility] Patient Instructions: Back Pain (ED), General Instructions Additional Instructions: Patient was given Norflex 60 mg IM. Patient given clonidine 0.1 mg p.o. now. Radiographic imaging is not felt warranted based on my history and physical per Patient will be continued on Flexeril 10 mg up to 3 times daily #15. Patient given a refill of her clonidine 0.1 mg twice daily. Patient is increased on her gabapentin to 300 mg 3 times daily. Patient to continue her meloxicam 15 mg daily per Recommend follow-up with [facility] regarding her blood pressure issues. Patient can return to the emergency department with any worsening symptoms per Med/Other Pt SpecificInfo: Prescription(s) given Scripts Gabapentin (Gabapentin) 300 Mg Cap 300 MG PO TID, #90 CAP 0 Refills Prov: Declan Turk MD 04/05/17 Clonidine (Clonidine) 0.1 Mg Tab 0.1 MG PO TID for Blood Pressure Management, #60 TAB 0 Refills Prov: Declan Turk MD 04/05/17 Cyclobenzaprine (Flexeril) 10 Mg Tab 10 MG PO TID for Muscle Spasm, #15 TAB 0 Refills Prov: Declan Turk MD 04/05/17 Disposition: 01 DISCHARGE HOME Condition: Stable Flako Rios Apr 05, 2017 07:46
[2017-04-05] MEDS ORDERED: ORPHENADRINE INJ 60 MG/2 ML AMP IM ONE (08:15)
[2017-04-05] MEDS ORDERED: cloNIDine HCL 0.1 MG TAB PO ONE (08:15)
[2017-04-05] MEDS ORDERED: CYCL10TA PO (08:16)
[2017-04-05] MEDS ORDERED: GABA300C5 PO (08:16)
[2017-04-05] MEDS ORDERED: CLON0.1T PO (08:16)
[2017-04-05 09:02] VITALS: BP 168/99
== END 2017-04-05 09:04 | disposition home or self-care (01) ==
LOC: NEPD 07:26
DX: S39.012A Strain of muscle, fascia and tendon of lower back, initial encounter (principal); I10 Essential (primary) hypertension; R56.9 Unspecified convulsions; W18.2XXA Fall in (into) shower or empty bathtub, initial encounter; Y93.E1 Activity, personal bathing and showering; Y92.002 Bathroom of unspecified non-institutional (private) residence as the place of occurrence of the external cause
CPT/HCPCS: 96372; 99283; J2360

== ENCOUNTER 2017-05-18 15:47 | Emergency (ER) | payer OTHER ==
[~2017-05-18] VITALS: Ht 154.9 cm; Wt 120.0 kg
[~2017-05-18 15:47] MED LIST changes: +CLON0.1T PO; +CYCL10TA PO
[2017-05-18 16:03] VITALS: BP 143/80; PULSE 70; RESP 20; TEMP 98.7; O2SAT 100
[2017-05-18 19:18] VITALS: BP 182/119; PULSE 105; RESP 22; O2SAT 100
== END 2017-05-18 20:11 | disposition left against medical advice (07) ==
LOC: NED 15:47
DX: R10.9 Unspecified abdominal pain (principal)
CPT/HCPCS: 99281

== ENCOUNTER 2017-06-07 15:45 | Emergency (ER) | payer SELFPAY ==
[~2017-06-07] VITALS: Ht 154.9 cm; Wt 127.3 kg
[2017-06-07 16:03] VITALS: BP 133/83; PULSE 90; RESP 18; TEMP 97.8; O2SAT 97
[2017-06-07] MEDS ORDERED: PENI500T PO (16:15)
[2017-06-07] MEDS ORDERED: KETOROLAC TROMETHAMINE 60 MG/2 ML (IM) VIAL IM ONE (16:15)
[2017-06-07] MEDS ORDERED: IBUP1TAB7 PO (16:15)
[2017-06-07] MEDS ORDERED: MAGICADU2 SWISH-SPIT (16:15)
[2017-06-07] MEDS ORDERED: PENICILLIN V POTASSIUM 500 MG TAB PO ONE (16:15)
[2017-06-07] MEDS ORDERED: MAPA500T13 PO (16:15)
--- NOTE | 2017-06-07 16:20 | PD ---
HPI Chief Complaint: Oral / Dental Pain or Problem Time Seen by Provider: 16:09 Travel History International Travel<30 days: No Contact w/Intl Traveler<30days: No Traveled to known affect area: No History of Present Illness HPI 37-year-old female presents emergency department with multiple dental pain complaints. Patient states symptoms started approximately 4 days ago and multiple teeth in both upper and lower jaws. She denies fever, chills, or difficulty swallowing. Pain is 10 out of 10. She is tearful. She has no local dentist. She states she has been taking ibuprofen without much improvement. Her symptoms are worse today. No significant swelling is noted. She states she is allergic to acetaminophen, codeine, morphine, and propoxyphene , but she states they only make her itch. PFSH Past Medical History Blood Disorders: No Anxiety: No Depression: Yes Heart Rhythm Problems: No Cancer: No Cardiac Catheterization: No Cardiovascular Problems: Yes (HTN) High Cholesterol: Yes Chest Pain: No Congestive Heart Failure: No Diabetes: No Diminished Hearing: No Endocrine: No Genitourinary: Yes (hernia repair) Headaches: Yes Heparin Induced Thrombocytopen: No Hypertension: Yes Immune Disorder: No Implanted Vascular Access Dvce: No Musculoskeletal: No Neurologic: Yes (seizures) Psychiatric: Yes Reproductive: No Respiratory: No Immunizations Current: No Seizures: Yes ( A CHILD) Tetanus Vaccination: < 5 Years ?: Not LMP: 05/26/17 : 4 Para: 3 Miscarriage: 1 : 1 Ectopic : Yes Ovarian Cysts: Yes Tubal Ligation: Yes (UNILATERAL) Past Surgical History Abdominal Surgery: Yes (Hernia 2011) AICD: No Body Medical Devices: BLOOD CLOT RIGHT SIDE OF HEAD FIVE YEARS AGO Section: Yes (X3) Coronary Artery Bypass Graft: No Genitourinary Surgery: No Gynecologic Surgery: Yes (TUBAL LIGATION, X 4) Thoracic Surgery: No Other Surgery: Yes Family History Family Myocardial Infarction: Yes (grandmother ) Social History Alcohol Use: Yes Tobacco Use: Yes (1 PPD) Substance Use: Yes (MARIJUANA OCCASIONAL) Allergies-Medications (Allergen,Severity, Reaction): Coded Allergies: propoxyphene (Unverified Adverse Reaction, Mild, itch, 06/07/17) acetaminophen (Unverified Adverse Reaction, Unknown, ITCHING, 06/07/17) codeine (Unverified Adverse Reaction, Unknown, ITCHING, 06/07/17) morphine (Unverified Adverse Reaction, Unknown, ITCHING, 06/07/17) Reported Meds & Prescriptions Reported Meds & Active Scripts Active Mapap Extra Strength (Acetaminophen) 500 Mg Tab 1,000 Mg PO Q6HR PRN Ibuprofen 800 Mg Tab 800 Mg PO Q8H PRN Magic Mouthwash Adult Liq (Multi-Ingredient Mouthwash/Gargle) 120 Ml Susp 10 Ml SWISH-SPIT Q2HR Each 5mL contains: Nystatin 200,000units, Diphenhydramine 4.25mg, Viscous Lidocaine 10mg, Drummond syrup 0.8 mL Penicillin V Potassium 500 Mg Tab 500 Mg PO Q6H 10 Days Gabapentin 300 Mg Cap 300 Mg PO TID Clonidine (Clonidine HCl) 0.1 Mg Tab 0.1 Mg PO TID Flexeril (Cyclobenzaprine HCl) 10 Mg Tab 10 Mg PO TID Meloxicam 15 Mg Tab 15 Mg PO DAILY Penicillin V Potassium 500 Mg Tab 500 Mg PO Q6H 7 Days Lisinopril 5 Mg Tab 5 Mg PO DAILY Reported Gabapentin 300 Mg Cap 300 Mg PO BID Clonidine (Clonidine HCl) 0.2 Mg Tab 0.2 Mg PO TID Review of Systems Except as stated in HPI: all other systems reviewed are Neg General / Constitutional: No: Fever Eyes: No: Visual changes HENT: Positive: Dental Difficulties, Earache, No: Headaches, Vertigo, Lightheadedness, Sore Throat, Rhinitis, Rhinorrhea, Congestion, Nosebleed, Neck Stiffness, Neck Pain, Gingival Bleeding, Ear Discharge Cardiovascular: No: Chest Pain or Discomfort Respiratory: No: Shortness of Breath Gastrointestinal: No: Abdominal Pain Genitourinary: No: Dysuria Musculoskeletal: No: Pain Skin: No Rash Neurologic: No: Weakness Psychiatric: No: Depression Endocrine: No: Polydipsia Hematologic/Lymphatic: No: Easy Bruising Physical Exam Narrative GENERAL: Obese female in moderate distress, tearful. SKIN: Warm and dry. Normal color. Normal turgor. No erythema. No rash. HEAD: Atraumatic. Normocephalic. No significant swelling is noted EYES: Pupils equal and round. No scleral icterus. No injection or drainage. ENT: No nasal bleeding or discharge. Mucous membranes pink and moist. Teeth are in very poor condition with multiple broken teeth and caries noted. Posterior pharynx is unremarkable. Airways patent. No significant gingival swelling is noted NECK: Trachea midline. Supple and nontender per CARDIOVASCULAR: Regular rate and rhythm. RESPIRATORY: No accessory muscle use. Clear to auscultation. Breath sounds equal bilaterally. GASTROINTESTINAL: Abdomen soft, non-tender, nondistended. Hepatic and splenic margins not palpable. MUSCULOSKELETAL: Extremities without clubbing, cyanosis, or edema. No obvious deformities. NEUROLOGICAL: Awake and alert. No obvious cranial nerve deficits. Motor grossly within normal limits. Five out of 5 muscle strength in the arms and legs. Normal speech. PSYCHIATRIC: Appropriate mood and affect; insight and judgment normal. Data Data Last Documented VS Vital Signs Date Time Temp Pulse Resp B/P (MAP) Pulse Ox O2 Delivery O2 Flow Rate FiO2 06/07/17 16:03 97.8 90 18 133/83 (100) 97 Orders Orders Penicillin V Potassium (Veetids) (06/07/17 16:15) Ketorolac Inj (Toradol Inj) (06/07/17 16:15) [facility] Medical Decision Making Medical Screen Exam Complete: Yes Emergency Medical Condition: Yes Medical Record Reviewed: Yes Differential Diagnosis Dental caries. Dental pain. Dental abscess. Narrative Course Patient will be treated with Pen-Vee K 1000 mg p.o. now. Patient is given Toradol 60 mg IM. Patient continued on Pen-Vee K 500 mg 4 times daily 10 days. Patient is continued on ibuprofen 800 mg 3 times daily with food #60. Patient is given a prescription for Magic mouthwash to be used every 2 hours as directed 120 mL's with 2 refills. Patient is to follow local dental resources as soon as possible. Patient can return if symptoms worsen as needed. Referrals: Dentist Patient Instructions: Dental Abscess (ED), General Instructions Additional Instructions: Patient will be treated with Pen-Vee K 1000 mg p.o. now. Patient is given Toradol 60 mg IM. Patient continued on Pen-Vee K 500 mg 4 times daily 10 days. Patient is continued on ibuprofen 800 mg 3 times daily with food #60. Patient is given a prescription for Magic mouthwash to be used every 2 hours as directed 120 mL's with 2 refills. Patient is to follow local dental resources as soon as possible. Patient can return if symptoms worsen as needed. Med/Other Pt SpecificInfo: Prescription(s) given Scripts Acetaminophen (Mapap Extra Strength) 500 Mg Tab 1000 MG PO Q6HR Y for PAIN, #60 TAB 0 Refills Prov: Jorge Benavides MD 06/07/17 Ibuprofen (Ibuprofen) 800 Mg Tab 800 MG PO Q8H Y for Pain/Inflammation, #60 TAB 0 Refills Prov: Jorge Benavides MD 06/07/17 Lnnrskjm-Tirhzsibgitdkdz-Acrvfxdee Liq (Magic Mouthwash Adult Liq) 120 Ml Susp 10 ML SWISH-SPIT Q2HR for Mouth sores, #120 ML 2 Refills Each 5mL contains: Nystatin 200,000units, Diphenhydramine 4.25mg, Viscous Lidocaine 10mg, Drummond syrup 0.8 mL Prov: Jorge Benavides MD 06/07/17 Penicillin V Potassium (Penicillin V Potassium) 500 Mg Tab 500 MG PO Q6H for Infection for 10 Days, #40 TAB 0 Refills Prov: Jorge Benavides MD 06/07/17 Disposition: 01 DISCHARGE HOME Condition: Stable Flako Rios Jun 07, 2017 16:20
[2017-06-08] MEDS ORDERED: LISI10TA3 PO (08:23)
[2017-06-08] MEDS ORDERED: CLON0.2T PO (08:23)
[2017-06-08] MEDS ORDERED: DICY10 PO (08:24)
[2017-06-08] MEDS ORDERED: PROM25TA10 PO (08:24)
== END 2017-06-07 16:43 | disposition home or self-care (01) ==
LOC: NEPK 15:45
DX: K04.7 Periapical abscess without sinus (principal); K08.89 Other specified disorders of teeth and supporting structures; I10 Essential (primary) hypertension; F12.90 Cannabis use, unspecified, uncomplicated; F17.200 Nicotine dependence, unspecified, uncomplicated
CPT/HCPCS: 96372; 99283; J1885

== ENCOUNTER 2017-06-08 04:13 | Emergency (ER) | payer SELFPAY ==
[~2017-06-08] VITALS: Ht 154.9 cm; Wt 125.0 kg
[~2017-06-08 04:13] MED LIST changes: +IBUP1TAB7 PO; +MAGICADU2 SWISH-SPIT; +MAPA500T13 PO
[2017-06-08 04:18] VITALS: BP 163/83; PULSE 127; RESP 36; TEMP 99.1; O2SAT 100
[2017-06-08] MEDS ORDERED: ONDANSETRON HCL 4 MG/2 ML VIAL IV PUSH ONE (05:00)
[2017-06-08] MEDS ORDERED: LABETALOL HCL 100 MG/20 ML VIAL IV PUSH ONE (05:00)
[2017-06-08] MEDS ORDERED: SODIUM CHLORIDE 0.9% FLUSH 10 ML FLUSH IVF PRN (05:00)
[2017-06-08 05:13] VITALS: BP_SYST 174; BP_SYST 187; BP_DIAS 106; BP_DIAS 114; PULSE 99; O2SAT 100
[2017-06-08 05:25] VITALS: BP 161/101; PULSE 90; RESP 28; O2SAT 100
[2017-06-08 05:25] LABS: AUTOMATED NEUTROPHIL # 13.8 TH/MM3 (1.8-7.7); BASOPHIL # 0.1 TH/MM3 (0-0.2); BASOPHIL % 0.3 % (0.0-2.0); EOSINOPHIL # 0.1 TH/MM3 (0-0.4); EOSINOPHIL % 0.4 % (0.0-4.0); HEMATOCRIT 43.8 % (35.0-46.0); HEMOGLOBIN 14.3 GM/DL (11.6-15.3); LYMPH % 13.6 % (9.0-44.0); LYMPHOCYTE # 2.4 TH/MM3 (1.0-4.8); MEAN CELL VOLUME 83.4 FL (80.0-100.0); MEAN CORPUSCULAR HEMOGLOBIN 27.2 PG (27.0-34.0); MEAN CORPUSCULAR HGB CONC 32.6 % (32.0-36.0); MEAN PLATELET VOLUME 8.9 FL (7.0-11.0); MONO % 7.3 % (0.0-8.0); MONOCYTE # 1.3 TH/MM3 (0-0.9); NEUT % 78.4 % (16.0-70.0); PLATELET COUNT 339 TH/MM3 (150-450); RED BLOOD COUNT 5.26 MIL/MM3 (4.00-5.30); RED CELL DISTRIBUTION WIDTH 13.2 % (11.6-17.2); WHITE BLOOD COUNT 17.6 TH/MM3 (4.0-11.0)
--- NOTE | 2017-06-08 05:32 | PD ---
HPI Chief Complaint: Chest Pain Time Seen by Provider: 04:56 Travel History International Travel<30 days: No Contact w/Intl Traveler<30days: No Traveled to known affect area: No History of Present Illness HPI 37-year-old female presents to the emergency department with palpitations shortness of breath chest pain headache paresthesias nausea and not feeling well. Patient states she went to bed around midnight and awakened not feeling well. Patient states that she has never felt this way before. Patient continues to feel nauseated. Patient states she has high blood pressure but does not take blood pressure medication. Patient denies headache being thunderclap sudden onset or worst ever denies blurred vision double vision or loss of vision. Denies any difficulty with speaking or swallowing. Denies any balance disturbance. No upper extremity or lower extremity numbness tingling or weakness. Patient rates her discomfort 10/10 intensity PFSH Past Medical History Narrative Medical Hypertension dyslipidemia anxiety tubal ligation occasional marijuana use; nursing notes reviewed Blood Disorders: No Anxiety: No Depression: Yes Heart Rhythm Problems: No Cancer: No Cardiac Catheterization: No Cardiovascular Problems: Yes (HTN) High Cholesterol: Yes Chest Pain: No Congestive Heart Failure: No Diabetes: No Diminished Hearing: No Endocrine: No Genitourinary: Yes (hernia repair) Headaches: Yes Heparin Induced Thrombocytopen: No Hypertension: Yes Immune Disorder: No Implanted Vascular Access Dvce: No Musculoskeletal: No Neurologic: Yes (seizures) Psychiatric: Yes Reproductive: No Respiratory: No Immunizations Current: No Seizures: Yes ( A CHILD) Tetanus Vaccination: Unknown ?: Not LMP: 05/26/2017 : 4 Para: 3 Miscarriage: 1 : 1 Ectopic : Yes Ovarian Cysts: Yes Tubal Ligation: Yes (UNILATERAL) Past Surgical History Abdominal Surgery: Yes (Hernia 2011) AICD: No Body Medical Devices: BLOOD CLOT RIGHT SIDE OF HEAD FIVE YEARS AGO Section: Yes (X3) Coronary Artery Bypass Graft: No Genitourinary Surgery: No Gynecologic Surgery: Yes (TUBAL LIGATION, X 4) Thoracic Surgery: No Other Surgery: Yes Family History Family Myocardial Infarction: Yes (grandmother ) Social History Alcohol Use: Yes Tobacco Use: Yes (1 PPD) Substance Use: Yes (MARIJUANA OCCASIONAL) Allergies-Medications (Allergen,Severity, Reaction): Coded Allergies: propoxyphene (Unverified Adverse Reaction, Mild, itch, 06/08/17) codeine (Unverified Adverse Reaction, Unknown, ITCHING, 06/08/17) morphine (Unverified Adverse Reaction, Unknown, ITCHING, 06/08/17) Reported Meds & Prescriptions Reported Meds & Active Scripts Active Mapap Extra Strength (Acetaminophen) 500 Mg Tab 1,000 Mg PO Q6HR PRN Ibuprofen 800 Mg Tab 800 Mg PO Q8H PRN Magic Mouthwash Adult Liq (Multi-Ingredient Mouthwash/Gargle) 120 Ml Susp 10 Ml SWISH-SPIT Q2HR Each 5mL contains: Nystatin 200,000units, Diphenhydramine 4.25mg, Viscous Lidocaine 10mg, Drummond syrup 0.8 mL Penicillin V Potassium 500 Mg Tab 500 Mg PO Q6H 10 Days Gabapentin 300 Mg Cap 300 Mg PO TID Clonidine (Clonidine HCl) 0.1 Mg Tab 0.1 Mg PO TID Flexeril (Cyclobenzaprine HCl) 10 Mg Tab 10 Mg PO TID Meloxicam 15 Mg Tab 15 Mg PO DAILY Penicillin V Potassium 500 Mg Tab 500 Mg PO Q6H 7 Days Lisinopril 5 Mg Tab 5 Mg PO DAILY Reported Gabapentin 300 Mg Cap 300 Mg PO BID Clonidine (Clonidine HCl) 0.2 Mg Tab 0.2 Mg PO TID Review of Systems Except as stated in HPI: all other systems reviewed are Neg Physical Exam Narrative GENERAL: Well-developed, nourished obese female crying in no respiratory distress SKIN: Warm and dry. HEAD: Atraumatic. Normocephalic. EYES: Pupils equal and round. No scleral icterus. No injection or drainage. ENT: No nasal bleeding or discharge. Mucous membranes pink and moist. NECK: Trachea midline. No JVD. CARDIOVASCULAR: Regular rate and rhythm. RESPIRATORY: No accessory muscle use. Clear to auscultation. Breath sounds equal bilaterally. GASTROINTESTINAL: Abdomen soft, non-tender, nondistended. Hepatic and splenic margins not palpable. MUSCULOSKELETAL: Extremities without clubbing, cyanosis, or edema. No obvious deformities. NEUROLOGICAL: Awake and alert. No obvious cranial nerve deficits. Motor grossly within normal limits. Five out of 5 muscle strength in the arms and legs. Normal speech. PSYCHIATRIC: Appropriate mood and affect; insight and judgment normal. Data Data Last Documented VS Vital Signs Date Time Temp Pulse Resp B/P (MAP) Pulse Ox O2 Delivery O2 Flow Rate FiO2 06/08/17 05:54 86 22 152/97 (115) 97 Room Air 06/08/17 04:18 99.1 Orders Orders Electrocardiogram (06/08/17 04:57) Basic Metabolic Panel (Bmp) (06/08/17 04:57) Ckmb (Isoenzyme) Profile (06/08/17 04:57) Complete Blood Count With Diff (06/08/17 04:57) Magnesium (Mg) (06/08/17 04:57) Prothrombin Time / Inr (Pt) (06/08/17 04:57) Act Partial Throm Time (Ptt) (06/08/17 04:57) Troponin I (06/08/17 04:57) Ecg Monitoring (06/08/17 04:57) Bilateral Bp Monitoring (06/08/17 04:57) Iv Access Insert/Monitor (06/08/17 04:57) Oximetry (06/08/17 04:57) Oxygen Administration (06/08/17 04:57) Sodium Chloride 0.9% Flush (Ns Flush) (06/08/17 05:00) Chest, Pa & Lat (06/08/17 04:57) Ondansetron Inj (Zofran Inj) (06/08/17 05:00) Ct Brain W/O Iv Contrast(Rout) (06/08/17 ) Labetalol Inj (Trandate Inj) (06/08/17 05:00) Ed Urine Pregnancytest Poc (06/08/17 04:57) Lorazepam Inj (Ativan Inj) (06/08/17 05:45) Urinalysis - C+S If Indicated (06/08/17 05:43) CKMB (06/08/17 05:00) CKMB% (06/08/17 05:00) Hydromorphone Pf Inj (Dilaudid Pf Inj) (06/08/17 06:15) Ct Abd/Pel W Iv Contrast(Rout) (06/08/17 ) Sodium Chlorid 0.9% 500 Ml Inj (Ns 500 M (06/08/17 06:45) Labs Laboratory Tests Test 06/08/17 05:00 06/08/17 06:45 White Blood Count 17.6 TH/MM3 Red Blood Count 5.26 MIL/MM3 Hemoglobin 14.3 GM/DL Hematocrit 43.8 % Mean Corpuscular Volume 83.4 FL Mean Corpuscular Hemoglobin 27.2 PG Mean Corpuscular Hemoglobin Concent 32.6 % Red Cell Distribution Width 13.2 % Platelet Count 339 TH/MM3 Mean Platelet Volume 8.9 FL Neutrophils (%) (Auto) 78.4 % Lymphocytes (%) (Auto) 13.6 % Monocytes (%) (Auto) 7.3 % Eosinophils (%) (Auto) 0.4 % Basophils (%) (Auto) 0.3 % Neutrophils # (Auto) 13.8 TH/MM3 Lymphocytes # (Auto) 2.4 TH/MM3 Monocytes # (Auto) 1.3 TH/MM3 Eosinophils # (Auto) 0.1 TH/MM3 Basophils # (Auto) 0.1 TH/MM3 CBC Comment DIFF FINAL Differential Comment Prothrombin Time 10.2 SEC Prothromb Time International Ratio 1.0 RATIO Activated Partial Thromboplast Time 21.9 SEC Blood Urea Nitrogen 12 MG/DL Creatinine 1.18 MG/DL Random Glucose 137 MG/DL Calcium Level 9.4 MG/DL Magnesium Level 1.7 MG/DL Sodium Level 141 MEQ/L Potassium Level 3.6 MEQ/L Chloride Level 103 MEQ/L Carbon Dioxide Level 25.1 MEQ/L Anion Gap 13 MEQ/L Estimat Glomerular Filtration Rate 63 ML/MIN Total Creatine Kinase 135 U/L Creatine Kinase MB 0.8 NG/ML Troponin I LESS THAN 0.02 NG/ML MDM Medical Decision Making Medical Screen Exam Complete: Yes Emergency Medical Condition: Yes Medical Record Reviewed: Yes Interpretation(s) EKG: Normal sinus rhythm rate [address] elevation injury pattern or ectopy noted Last Impressions Chest X-Ray 06/08/17 0457 Signed Impressions: Service Date/Time: Thursday, June 08, 2017 05:43 - CONCLUSION: No evidence of acute cardiopulmonary disease. Simeon Joshi MD Head CT 06/08/17 0000 Signed Impressions: Service Date/Time: Thursday, June 08, 2017 05:43 - CONCLUSION: No acute intracranial abnormality. Mild sphenoid sinusitis. Simeon Joshi MD CBC & BMP Diagram 06/08/17 05:00 Calcium Level 9.4, Magnesium Level 1.7 Vital Signs Date Time Temp Pulse Resp B/P (MAP) Pulse Ox O2 Delivery O2 Flow Rate FiO2 4/18/18 05:54 86 22 152/97 (115) 97 Room Air 06/08/17 05:25 90 28 161/101 (121) 100 Room Air 06/08/17 05:13 99 187/114 (138) 100 174/106 (128) 06/08/17 04:26 30 06/08/17 04:18 99.1 127 36 163/83 (109) 100 [id number] hCG: Negative Troponin I: Less than 0.02, not elevated Differential Diagnosis Uncontrolled hypertension, hypertensive crisis, ACS, ID, atypical chest pain, aortic dissection, viral syndrome Narrative Course Patient placed on monitoring manager IV access obtained specimens collected and sent for resulting EKG performed EKG normal sinus rhythm rate [address] elevation injury pattern or ectopy noted Patient hypertensive labetalol 20 mg IV ordered for administered Blood pressure is markedly improved patient still reminiscing and states the reason she actually comes to the emergency room is because of abdominal pain. Patient does not complain of any head pain numbness chest pain shortness of breath no nausea no vomiting had normal bowel movement yesterday but states the reason she is here at this time is because she is having midline abdominal pain. Patient states that 3 months ago she was told that she needed to have a hernia repair but could not do so because she did not have resources available for childcare. Patient states now her children in the care of the grandmother and she can be evaluated for her hernia at this time. Patient rates her abdominal pain as moderate to severe. Review of medical records identifies a last time she was evaluated for abdominal pain regarding ventral hernia that was stable with some small amount of fat noted in the ventral hernia was July 2016 prior to this was October 2015 at which time the recommendation was to have the hernia repaired and prior to that was in 2013. Patient has had previous hernia repair in 2011. Patient administered Dilaudid 0.[address] abdomen pelvis with IV contrast ordered. Diagnosis Primary Impression: HTN (hypertension) Additional Impression: Abdominal pain Ashley Dickerson MD Jun 08, 2017 05:32
[2017-06-08 05:33] LABS: PROTHROMBIN TIME - PATIENT 10.2 SEC (9.8-11.6)
[2017-06-08 05:44] LABS: BICARBONATE 25.1 MEQ/L (21.0-32.0); BLOOD UREA NITROGEN 12 MG/DL (7-18); CALCIUM 9.4 MG/DL (8.5-10.1); CHLORIDE 103 MEQ/L (98-107); CREATININE 1.18 MG/DL (0.50-1.00); GLOMERULAR FILTRATION RATE 63 ML/MIN (>89); GLUCOSE,RANDOM 137 MG/DL (74-106); MAGNESIUM 1.7 MG/DL (1.5-2.5); SODIUM (NA) 141 MEQ/L (136-145)
[2017-06-08] MEDS ORDERED: LORazepam 2 MG/ML VIAL IV PUSH ONE (05:45)
[2017-06-08 05:48] LABS: TROPONIN I LESS THAN 0.02 NG/ML (0.02-0.05)
[2017-06-08 05:54] VITALS: BP 152/97; PULSE 86; RESP 22; O2SAT 97
--- NOTE | 2017-06-08 05:57 | RADRPT ---
EXAM DATE/TIME: 06/08/2017 05:43 [facility] COMPARISON: 01/26/2017. INDICATIONS : Dizziness. RADIATION DOSE: 56.35 CTDIvol (mGy) MEDICAL HISTORY : Seizures. Hypertension. SURGICAL HISTORY : Tubal ligation. ENCOUNTER: Initial ACUITY: 1 day PAIN SCALE: 0/10 LOCATION: cranial TECHNIQUE: Multiple contiguous axial images were obtained of the head. Using automated exposure control and adj ustment of the mA and/or kV according to patient size, radiation dose was kept as low as reasonably a chievable to obtain optimal diagnostic quality images. DICOM format image data is available electro nically for review and comparison. FINDINGS: CEREBRUM: The ventricles are normal for age. No evidence of midline shift, mass lesion, hemorrhage or acute in farction. No extra-axial fluid collections are seen. POSTERIOR FOSSA: The cerebellum and brainstem are intact. The 4th ventricle is midline. The cerebellopontine angle i s unremarkable. EXTRACRANIAL: Mucoperiosteal thickening and small debris/fluid again seen in the sphenoid air cells. SKULL: The calvaria is intact. No evidence of skull fracture. CONCLUSION: No acute intracranial abnormality. Mild sphenoid sinusitis. Simeon Joshi MD on June 08, 2017 at 5:54 Board Certified Radiologist. This report was verified electronically.
--- NOTE | 2017-06-08 05:58 | RADRPT ---
EXAM DATE/TIME: 06/08/2017 05:43 [facility] COMPARISON: CHEST SINGLE AP, January 26, 2017, 1:58. INDICATIONS : Chest pain, vomiting. MEDICAL HISTORY : Hypertension. SURGICAL HISTORY : section. Tubal ligation. Hernia repair. ENCOUNTER: Initial ACUITY: 1 day PAIN SCORE: 5/10 LOCATION: Bilateral chest FINDINGS: PA and lateral views of the chest demonstrate the lungs to be symmetrically aerated without evidence of mass, infiltrate or effusion. The cardiomediastinal contours are unremarkable. Osseous structure s are intact. CONCLUSION: No evidence of acute cardiopulmonary disease. Simeon Joshi MD on June 08, 2017 at 5:56 Board Certified Radiologist. This report was verified electronically.
[2017-06-08] MEDS ORDERED: HYDROmorphone HCL PF 2 MG/ML VIAL IV PUSH ONE (06:15)
[2017-06-08] MEDS ORDERED: SODIUM CHLORID 0.9% 500 ML INJ 500 ML IV ONE (06:45)
[2017-06-08 07:03] LABS: BILIRUBIN, URINE NEG (NEG); BLOOD, URINE SMALL (NEG); GLUCOSE,URINE NEG (NEG); KETONE, URINE 10 mg/dL (NEG); NITRITE,URINE NEG (NEG); URINE COLOR LIGHT-YELLOW (YELLW/STRAW); URINE LEUKOCYTE ESTERASE TRACE (NEG)
[2017-06-08 07:04] LABS: HYALINE CAST, URINE 5 /lpf (RARE); MUCUS URINE FEW /lpf (OCC); SQUAMOUS EPITHELIAL CELL URINE 1 /hpf (0-5)
[2017-06-08] MEDS ORDERED: IOHEXOL 350 MG/ML 10 ML VIAL (for RAD DIAG) IVCONTRAST ONE (07:18)
--- NOTE | 2017-06-08 07:29 | PD ---
Physical Exam Narrative Patient was seen by ED physician and signed out to me. Data Data Last Documented VS Vital Signs Date Time Temp Pulse Resp B/P (MAP) Pulse Ox O2 Delivery O2 Flow Rate FiO2 06/08/17 05:54 86 22 152/97 (115) 97 Room Air 06/08/17 04:18 99.1 Orders Orders Electrocardiogram (06/08/17 04:57) Basic Metabolic Panel (Bmp) (06/08/17 04:57) Ckmb (Isoenzyme) Profile (06/08/17 04:57) Complete Blood Count With Diff (06/08/17 04:57) Magnesium (Mg) (06/08/17 04:57) Prothrombin Time / Inr (Pt) (06/08/17 04:57) Act Partial Throm Time (Ptt) (06/08/17 04:57) Troponin I (06/08/17 04:57) Ecg Monitoring (06/08/17 04:57) Bilateral Bp Monitoring (06/08/17 04:57) Iv Access Insert/Monitor (06/08/17 04:57) Oximetry (06/08/17 04:57) Oxygen Administration (06/08/17 04:57) Sodium Chloride 0.9% Flush (Ns Flush) (06/08/17 05:00) Chest, Pa & Lat (06/08/17 04:57) Ondansetron Inj (Zofran Inj) (06/08/17 05:00) Ct Brain W/O Iv Contrast(Rout) (06/08/17 ) Labetalol Inj (Trandate Inj) (06/08/17 05:00) Ed Urine Pregnancytest Poc (06/08/17 04:57) Lorazepam Inj (Ativan Inj) (06/08/17 05:45) Urinalysis - C+S If Indicated (06/08/17 05:43) CKMB (06/08/17 05:00) CKMB% (06/08/17 05:00) Hydromorphone Pf Inj (Dilaudid Pf Inj) (06/08/17 06:15) Ct Abd/Pel W Iv Contrast(Rout) (06/08/17 ) Sodium Chlorid 0.9% 500 Ml Inj (Ns 500 M (06/08/17 06:45) Iohexol 350 Inj (Omnipaque 350 Inj) (06/08/17 07:18) Labs Laboratory Tests Test 06/08/17 05:00 06/08/17 06:45 White Blood Count 17.6 TH/MM3 Red Blood Count 5.26 MIL/MM3 Hemoglobin 14.3 GM/DL Hematocrit 43.8 % Mean Corpuscular Volume 83.4 FL Mean Corpuscular Hemoglobin 27.2 PG Mean Corpuscular Hemoglobin Concent 32.6 % Red Cell Distribution Width 13.2 % Platelet Count 339 TH/MM3 Mean Platelet Volume 8.9 FL Neutrophils (%) (Auto) 78.4 % Lymphocytes (%) (Auto) 13.6 % Monocytes (%) (Auto) 7.3 % Eosinophils (%) (Auto) 0.4 % Basophils (%) (Auto) 0.3 % Neutrophils # (Auto) 13.8 TH/MM3 Lymphocytes # (Auto) 2.4 TH/MM3 Monocytes # (Auto) 1.3 TH/MM3 Eosinophils # (Auto) 0.1 TH/MM3 Basophils # (Auto) 0.1 TH/MM3 CBC Comment DIFF FINAL Differential Comment Prothrombin Time 10.2 SEC Prothromb Time International Ratio 1.0 RATIO Activated Partial Thromboplast Time 21.9 SEC Blood Urea Nitrogen 12 MG/DL Creatinine 1.18 MG/DL Random Glucose 137 MG/DL Calcium Level 9.4 MG/DL Magnesium Level 1.7 MG/DL Sodium Level 141 MEQ/L Potassium Level 3.6 MEQ/L Chloride Level 103 MEQ/L Carbon Dioxide Level 25.1 MEQ/L Anion Gap 13 MEQ/L Estimat Glomerular Filtration Rate 63 ML/MIN Total Creatine Kinase 135 U/L Creatine Kinase MB 0.8 NG/ML Troponin I LESS THAN 0.02 NG/ML Urine Color LIGHT-YELLOW Urine Turbidity CLEAR Urine pH 6.0 Urine Specific [place] 1.008 Urine Protein 30 mg/dL Urine Glucose (UA) NEG mg/dL Urine Ketones 10 mg/dL Urine Occult Blood SMALL Urine Nitrite NEG Urine Bilirubin NEG Urine Urobilinogen LESS THAN 2.0 MG/DL Urine Leukocyte Esterase TRACE Urine RBC LESS THAN 1 /hpf Urine WBC 4 /hpf Urine Squamous Epithelial Cells 1 /hpf Urine Hyaline Casts 5 /lpf Urine Mucus FEW /lpf Microscopic Urinalysis Comment CULT NOT INDICATED MDM Supervised Visit with [facility]: No Interpretation(s) 7:28 AM. CBC WBC 17.6. 78 neutrophil. BMP with creatinine 1.18. GFR 63. Cardiac enzymes are normal. UA is negative. Last Impressions Chest X-Ray 06/08/17 0457 Signed Impressions: Service Date/Time: Thursday, June 08, 2017 05:43 - CONCLUSION: No evidence of acute cardiopulmonary disease. Simeon Joshi MD Head CT 06/08/17 0000 Signed Impressions: Service Date/Time: Thursday, June 08, 2017 05:43 - CONCLUSION: No acute intracranial abnormality. Mild sphenoid sinusitis. Simeon Joshi MD 8:[address] scan abdomen pelvis negative acute pathology. Small fat- containing hernia abdominal wall. Diagnosis Primary Impression: HTN (hypertension) Qualified Codes: I10 - Essential (primary) hypertension Additional Impressions: Abdominal pain Qualified Codes: R10.9 - Unspecified abdominal pain Gastroenteritis Patient Instructions: General Instructions Additional Instruction: Clear fluid today and advance diet as tolerated. Take medication as directed. Follow-up with local physician. Return if worse. Med/Other Pt SpecificInfo: Prescription(s) given Scripts Promethazine (Phenergan) 25 Mg Tablet 25 MG PO Q6H Y for NAUSEA OR VOMITING, #20 TAB 0 Refills Prov: Froilan Gusman MD 06/08/17 Dicyclomine (Bentyl) 10 Mg Cap 10 MG PO TID Y for Bowel Management, #15 CAP 0 Refills Prov: Froilan Gusman MD 06/08/17 Lisinopril (Lisinopril) 10 Mg Tab 10 MG PO DAILY, #30 TAB 0 Refills Prov: Froilan Gusman MD 06/08/17 Clonidine (Clonidine) 0.2 Mg Tab 0.2 MG PO TID for Blood Pressure Management, #90 TAB 0 Refills Prov: Froilan Gusman MD 06/08/17 Disposition: DISCHARGE HOME Condition: Stable Froilan Gusman MD Jun 08, 2017 07:29
--- NOTE | 2017-06-08 07:34 | RADRPT ---
EXAM DATE/TIME: 06/08/2017 07:09 [facility] COMPARISON: CT ABDOMEN & PELVIS W CONTRAST, August 02, 2016, 2:08. INDICATIONS : Left sided abdominal pain IV CONTRAST: 93 cc Omnipaque 350 (iohexol) IV ORAL CONTRAST: No oral contrast ingested. RADIATION DOSE: 21.73 CTDIvol (mGy) ; Patient body habitus MEDICAL HISTORY : Hypertension. SURGICAL HISTORY : Tubal ligation. ENCOUNTER: Initial ACUITY: 1 day PAIN SCALE: 9/10 LOCATION: Left abdomen TECHNIQUE: Volumetric scanning of the abdomen and pelvis was performed. Using automated exposure control and adjustment of the mA and/or kV according to patient size, radiation dose was kept as low as reasonably achievable to obtain optimal diagnostic quality images. DICOM format image data is av ailable electronically for review and comparison. FINDINGS: LOWER LUNGS: The visualized lower lungs are clear. LIVER: The liver appears mildly enlarged with diffuse low-attenuation. There is a rounded area of increased attenuation measuring 4.6 cm immediately adjacent to the gallbladder fossa. This appearanc e is similar to that seen on prior CT. Vessels are seen traversing the area. Findings are consistent with focal fat sparing. SPLEEN: Normal size without lesion. PANCREAS: Within normal limits. KIDNEYS: Normal in size and shape. There is no mass, stone or hydronephrosis. ADRENAL GLANDS: Within normal limits. VASCULAR: There is no aortic aneurysm. BOWEL/MESENTERY: The stomach, small bowel, and colon demonstrate no acute abnormality. There is no free intraperitoneal air or fluid. ABDOMINAL WALL: There is a focal midline anterior abdominal wall defect with the neck of the mel ia measuring 2 cm. There is herniation of preperitoneal fat. RETROPERITONEUM: There is no lymphadenopathy. BLADDER: No wall thickening or mass. REPRODUCTIVE: Within normal limits. INGUINAL: There is no lymphadenopathy or hernia. MUSCULOSKELETAL: Within normal limits for patient age. CONCLUSION: 1. No evidence of inflammatory process within the abdomen or pelvis. No evidence of significant diver ticulosis or abnormal wall thickening. 2. Diffuse fatty infiltrate of the liver with a focal area of increased attenuation involving the gal lbladder fossa likely representing a focal fat sparing. Rimma Villanueva MD on June 08, 2017 at 7:26 Board Certified Radiologist. This report was verified electronically.
[2017-06-08] MEDS ORDERED: LISI10TA3 PO (08:23)
[2017-06-08] MEDS ORDERED: CLON0.2T PO (08:23)
[2017-06-08] MEDS ORDERED: PROM25TA10 PO (08:24)
[2017-06-08] MEDS ORDERED: DICY10 PO (08:24)
--- NOTE | 2017-06-08 12:10 | EKG ---
Date Performed: 06/08/2017 Time Performed: 05:23:17 PTAGE: 37 years EKG: Sinus rhythm POSSIBLE LEFT ATRIAL ENLARGEMENT BORDERLINE ECG PREVIOUS TRACING : 01/26/2017 03.09 Since the previous tracing, no significant change noted DOCTOR: Chin Shahid Interpretating Date/Time 06/08/2017 12:10:08
== END 2017-06-08 09:24 | disposition home or self-care (01) ==
LOC: NEPC 04:13
DX: I10 Essential (primary) hypertension (principal); K52.9 Noninfective gastroenteritis and colitis, unspecified; F12.90 Cannabis use, unspecified, uncomplicated; F17.200 Nicotine dependence, unspecified, uncomplicated; Z79.899 Other long term (current) drug therapy
CPT/HCPCS: 70450; 71046; 74177; 80048; 81001; 82550; 82552; 83735; 84484; 84703; 85025; 85610; 85730; 93005; 96374; 96375; 99285; J1170; J2060; J2405; J7040; Q9967